=== PATIENT | female | born 2000 | race Caucasian/White ===

== ENCOUNTER 2022-06-29 10:29 | Emergency (ER) | payer BC, SELFPAY ==
[2022-06-29 10:42] VITALS: BP 114/75; PULSE 104; RESP 20; TEMP 37.1; O2SAT 100
--- NOTE | 2022-06-29 10:46 | ED.URI ---
HPI - URI/Sore Throat General Chief Complaint: Upper Respiratory Infection Stated Complaint: cough, fatigued Time Seen by Provider: 06/29/22 10:46 Source: patient, RN notes reviewed and old records reviewed Mode of arrival: ambulatory Limitations: no limitations History of Present Illness HPI Narrative: 21-year-old female who presents to [facility] with complaints of sore throat and cough for 1.5 weeks. Patient reports that her symptoms started with cough and she has been excessively fatigued. Patient reports that she has had to nap daily because of fatigue, has not noted any known fevers but has has some chills and sweats. Patient reports some sore throat which she states is intermittent and rates as 4/10. Patient has not taken any OTC decongestants or cough medications has taken some Tylenol. MD elicited complaint: cough, sore throat and other (fatigue) Onset (ago): week(s) (1.5) Pain scale (0-10): 4 Able to tolerate fluids by mouth: Yes Treatments prior to arrival: acetaminophen Related Data Home Medications Medication Instructions Recorded Confirmed norethindrone 1 mg-ethinyl 1 tablet PO DAILY 06/29/22 06/29/22 estradiol 20 mcg (24)-iron 75 mg (4) tablet () Allergies Allergy/AdvReac Type Severity Reaction Status Date / Time No Known Allergies Allergy Verified 06/29/22 10:38 Review of Systems Review of Systems: CONSTITUTIONAL: Reports malaise, chills, sweats, no known fevers, reports fatigue EYES: Denies visual changes, redness, or discharge. ENT: Denies any rhinorrhea, congestion, sinus pain, otalgia positive for mild sore throat. CARDIOVASCULAR: Denies chest pain, palpitations, or edema. RESPIRATORY: Reports cough.? Denies dyspnea. GASTROINTESTINAL: Denies abdominal pain, nausea, vomiting, diarrhea SKIN: Denies rash or itching. MUSCULOSKELETAL: Denies myalgia.reports fatigue NEUROLOGIC: Denies headache. All systems reviewed & are unremarkable except as noted in HPI and below PMFSH Social History Social History (Updated 07/03/22 @ 13:52 by Nannette Harry NP) Tobacco type: e-cigarettes/vaping Alcohol intake: never Substance use: never Living arrangements: with roommate(s) Occupation/Education: student Gender identity (if verbalized by the patient): Female Comments At time of signature, agree with nursing past medical, surgical, social and family history. There is no relevant family history pertinent to the presenting complaint Exam Narrative: GENERAL: Well-appearing, well-nourished, and in no acute distress. HEAD: Normocephalic EYES: PERRLA, conjunctivae clear ENT: Nares clear, turbinates edematous and erythematous, clear discharge. Mucous membranes moist. TM pearly murguia with dull light reflex bilaterally; no tragal tenderness. Oropharynx erythematous without lesions. Tonsils not enlarged and without exudate, no drooling, no hoarseness, no trismus, uvula midline.enlarged palpable lymph noted left neck region. NECK: Supple. left side lymphadenopathy CHEST: Clear to auscultation, breath sounds equal. No wheezing, rhonchi, rales, or stridor. No respiratory distress, speaks in full sentences.occasional dry cough noted SAO2 100% on room air HEART: Regular rate and rhythm. No murmur heard. SKIN: Warm, dry, no rash. NEURO: Alert and oriented x3. PSYCH: Normal mood and affect Course Course Emergency Course: Patient is aware of diagnosis, understands and agrees to treatment plan.? Anticipatory guidance given.? Patient agrees to follow-up as directed and is aware of reasons to seek care at the emergency department. Portions of this record may have been created with voice recognition software Level of Care: Express Care Visit Vital Signs Vital signs: Vital Signs Temperature 37.1 C 06/29/22 10:42 Pulse Rate 104 H 06/29/22 10:42 Respiratory Rate 20 06/29/22 10:42 Blood Pressure 114/75 06/29/22 10:42 Pulse Oximetry 100 06/29/22 10:
== END 2022-06-29 11:16 | disposition home or self-care (01) ==
PROVIDERS: Emergency Provider Registered Nurse
DX: J06.9 Acute upper respiratory infection, unspecified (principal)
CPT/HCPCS: 36416; 86308; 99213; G0463

== ENCOUNTER 2023-01-22 08:49 | Emergency (ER) | payer BC, SELFPAY ==
--- NOTE | 2023-01-22 09:00 | ED.URI ---
HPI - URI/Sore Throat General Chief Complaint: Upper Respiratory Infection Stated Complaint: sore throat Time Seen by Provider: 01/22/23 09:10 Source: patient, RN notes reviewed and old records reviewed Mode of arrival: ambulatory Limitations: no limitations History of Present Illness HPI Narrative: 22-year-old female presents to the [facility] complaints of sore throat , sinus congestion, postnasal drip for 1 week. Patient states it feels like when she had COVID. Patient denies fevers. No abdominal pain. Also reports a cough which makes her chest hurt but no constant chest pain. Denies shortness of breath. Had taken an allergy medication, twice Related Data Allergies Allergy/AdvReac Type Severity Reaction Status Date / Time No Known Allergies Allergy Verified 01/22/23 08:57 Review of Systems Review of Systems: All systems reviewed & are unremarkable except as noted in HPI and below Constitutional: Constitutional: Reports as per HPI and Reports fatigue Eyes: Eyes: Reports no additional eye complaints ENT: Reports system reviewed and no additional complaints, except as documented and Reports sore throat Cardiovascular: Cardiovascular: Reports no additional cardiovascular complaints, Denies chest pain and Denies dyspnea Respiratory: Respiratory: Reports no additional respiratory complaints, Denies chest congestion, Denies cough and Denies dyspnea Gastrointestinal: Gastrointestinal: Reports no additional gastrointestinal complaints, Denies abdominal pain, Denies nausea and Denies vomiting Musculoskeletal: Musculoskeletal: Reports no additional musculoskeletal complaints Integumentary/Breasts: Skin/Breast: Reports system reviewed and no additional complaints, except as docu Neurologic: Reports system reviewed and no additional complaints, except as documented Psychiatric: Psychiatric: Reports no additional psychiatric complaints Allergic/Immunologic: Allergic/Immunologic: Reports no additional allergic/immunologic complaints [facility] Social History Social History Tobacco type: e-cigarettes/vaping Alcohol intake: never Substance use: never Living arrangements: with roommate(s) Occupation/Education: student Gender identity (if verbalized by the patient): Female Comments At the time of my signature, I reviewed and agree with the nursing past medical, surgical, social, and family history. There is no relevant family history pertinent to the patient complaint. Exam Const: General: cooperative, healthy appearing, no acute distress, well developed, alert, uncomfortable and well nourished Nutritional Appearance: well nourished Orientation/consciousness: patient oriented x3 Limitations: no limitations HENMT: Head: normal to inspection Ears: hearing grossly normal bilaterally, external ears normal, TM's normal bilaterally and EAC's normal Face/Nose/Sinus: Normal external nose present, Normal nares present, Normal nasal mucous membranes and turbinates present, No nasal discharge present and normal facial exam Face and sinus: normal facial exam Mouth: Yes Normal oral and palatal mucosa present, Yes lip normal and Yes moist mucous membranes Throat: posterior oropharynx normal, tonsils normal, uvula midline and no uvular edema Eyes: General: appearance normal, both eyes and all related structures Alignment and Position: alignment normal Periorbital: periorbital findings normal Pupils: Equal, round and reactive pupils present EOM: EOMs intact bilaterally Neck: Neck: normal visual inspection, full ROM, no meningeal signs and lymphadenopathy ( bilateral submandibular) Chest: Chest palpation & inspection: normal inspection of the chest Resp: Effort & Inspection: normal respiratory effort and able to speak in complete sentences Auscultation: clear to auscultation bilaterally, no crackles, no rales, no rhonchi and no wheezes Cardio: Rate: regular rate Rhyth
[2023-01-22 09:02] VITALS: BP 101/67; PULSE 86; RESP 16; TEMP 36.8; O2SAT 98
== END 2023-01-22 09:36 | disposition home or self-care (01) ==
PROVIDERS: Emergency Provider Nurse Practitioner; PCP Pediatrics
DX: B27.90 Infectious mononucleosis, unspecified without complication (principal); Z20.822 Contact with and (suspected) exposure to COVID-19; F17.290 Nicotine dependence, other tobacco product, uncomplicated
CPT/HCPCS: 36416; 86308; 87081; 87426; 87880; 99213; C9803; G0463

== ENCOUNTER 2023-03-05 09:54 | Emergency (ER) | payer BC, SELFPAY ==
--- NOTE | 2023-03-05 09:56 | ED.FEMALEGU ---
HPI - Female Genitourinary General Chief complaint: Urogenital-Female Stated complaint: Pain & frequent urination; pain in abdomen Time Seen by Provider: 03/05/23 09:55 Source: patient Mode of arrival: ambulatory Limitations: no limitations History of Present Illness HPI Narrative: Bharati is a 22-year-old female patient presenting to the clinic today with complaints of dysuria and frequent urination with lower abdominal pain X5 day. She reports she has been having burning with urination, frequent urination, and lower abdominal cramping was some mild back pain x5 days. She denies any fever or chills. Last menstrual period was 3 weeks ago. Denies any chance for . No vaginal discharge or odor. Related Data Allergies Allergy/AdvReac Type Severity Reaction Status Date / Time No Known Allergies Allergy Verified 03/05/23 10:03 Review of Systems Review of Systems: Pertinent positives per HPI. Patient denies any fever, chills, rash, headache, visual changes, dizziness, cough, runny nose, sore throat, shortness of breath, chest pain, palpitations, nausea, vomiting, diarrhea, constipation, PMFSH Social History Social History Tobacco type: e-cigarettes/vaping Alcohol intake: never Substance use: never Living arrangements: with roommate(s) Occupation/Education: student Gender identity (if verbalized by the patient): Female Comments At the time of my signature, I reviewed and agree with the nursing past medical, surgical, social, and family history. There is no relevant family history pertinent to the patient complaint. Exam Narrative: General: Well-developed, well nourished, in no apparent distress. Head: Normocephalic, atraumatic. Cardio: Regular rate and rhythm, s1 and s2 normal, no murmur appreciated. Resp: Clear to auscultation bilaterally, no rhonchi, rales, wheezing or rubs. Abdomen: Soft, pliable, bowel sounds present in all quadrants, mild tender to palpation over the bladder, no organomegly, no CVAT tenderness. Course Course Emergency Course: Portions of this record may have been created with voice recognition software. Level of Care: Express Care Visit Vital Signs Vital signs: Vital signs reviewed MDM - Female Genitourinary MDM Narrative Medical decision making narrative: At the time of visit patient is resting comfortably on the exam table. UA dip and UA preg test was performed Differential Diagnosis Differential diagnosis: Likely urinary tract infection, cystitis and other (Pyelonephritis) Discharge Plan Discharge Clinical Impression: Urinary tract infection Qualifiers: Urinary tract infection type: acute cystitis Hematuria presence: with hematuria Qualified Code(s): N30.01 - Acute cystitis with hematuria Patient Disposition: Home, Self-Care Condition: Stable Instructions: Antibiotic Form, Urinary Tract Infection in Women (ED) Additional Instructions: UA shows Leukocytes, blood, and protein. Will send for culture. U/A preg test negative. Take Bactrim and pyridium as prescribed. Increase fluids and stay well hydrated Wipe front to back. May use wet wipes. Avoid tub baths If sexually active- pee before and after intercourse. Wear cotton panties Avoid tight clothing up against the genitals Follow up with your PCP in 1 week if symptoms persist. Prescriptions: New sulfamethoxazole-trimethoprim [Bactrim DS] 800-160 mg tablet 1 tablet PO Q12H 7 Days Qty: 14 0RF phenazopyridine [Pyridium] 200 mg tablet 200 mg PO TID PRN (Reason: pain) Qty: 6 0RF Follow-up/Referrals: Francheska,Bernard Riley MD [Primary Care Provider] - Stand Alone Forms: Work/School Release IP Time of Disposition: 10:16 Quality NIHSS Nursing Documentation ED NIHSS nursing documentation: reviewed/agree
[2023-03-05 10:08] VITALS: BP 112/73; PULSE 100; RESP 16; TEMP 36.6; O2SAT 100
== END 2023-03-05 10:25 | disposition home or self-care (01) ==
LOC: EXPGOSH 10:00
PROVIDERS: Emergency Provider Nurse Practitioner Family; PCP Pediatrics
DX: N30.01 Acute cystitis with hematuria (principal); F17.290 Nicotine dependence, other tobacco product, uncomplicated
CPT/HCPCS: 81003; 81025; 87077; 87086; 87088; 99213; G0463

== ENCOUNTER 2023-04-26 10:37 | Emergency (ER) | payer BC, SELFPAY ==
--- NOTE | ~2023-04-26 | XR_ITS ---
EXAMINATION: XR abdomen obstructive series DATE: 04/26/2023 11:34 INDICATION: Abdominal pain. Diarrhea. TECHNIQUE: Upright and supine views of the abdomen on 3 radiographs were obtained. COMPARISON: None. FINDINGS: There are no dilated loops of bowel. There is a small volume of stool in the colon. No free intraperitoneal gas. IMPRESSION: 1. Normal bowel gas pattern. Reviewed, dictated and finalized at location A.
[2023-04-26 10:51] VITALS: BP 101/67; PULSE 81; RESP 16; TEMP 36.8; O2SAT 100
--- NOTE | 2023-04-26 11:09 | ED.NAVMDI ---
HPI - Nausea/Vomiting/Diarrhea General Chief complaint: Abdominal Pain Stated complaint: CONSTIPATION Time Seen by Provider: 04/26/23 11:00 Source: patient Mode of arrival: ambulatory Limitations: no limitations History of Present Illness HPI Narrative: Bharati is a 22-year-old female patient presenting to the clinic today with complaints of diarrhea x2 weeks. She reports that prior to having diarrhea she went on a flu trip but she denies getting any water in her mouth. She denies any fever, chills, or body aches. Reports that the diarrhea initially was brown and now is a green color. States she is only having abdominal cramping prior to having diarrhea otherwise she has no abdominal pain. She reports that she is having some urinary frequency however no burning or urgency with urination. States she has had 3 diarrhea stools this morning already. Related Data Home Medications Medication Instructions Recorded Confirmed No Home Medications 04/26/23 04/26/23 Allergies Allergy/AdvReac Type Severity Reaction Status Date / Time No Known Allergies Allergy Verified 03/05/23 10:03 Review of Systems Review of Systems: Pertinent positives per HPI. Patient denies any fever, chills, rash, headache, visual changes, dizziness, cough, runny nose, sore throat, shortness of breath, chest pain, palpitations, nausea, vomiting, diarrhea, constipation, abdominal pain, or any urinary issues. PMFSH Social History Social History Tobacco type: e-cigarettes/vaping Alcohol intake: never Substance use: never Living arrangements: with roommate(s) Occupation/Education: student Gender identity (if verbalized by the patient): Female Comments At the time of my signature, I reviewed and agree with the nursing past medical, surgical, social, and family history. There is no relevant family history pertinent to the patient complaint. Exam Narrative: General: Well-developed, well nourished, in no apparent distress. Head: Normocephalic, atraumatic. Cardio: Regular rate and rhythm, s1 and s2 normal, no murmur appreciated. Resp: Clear to auscultation bilaterally, no rhonchi, rales, wheezing or rubs. Abdomen: Soft, pliable, bowel sounds present in all quadrants, non-tender to palpation, no organomegly, no CVAT tenderness. Course Course Emergency Course: Portions of this record may have been created with voice recognition software. Level of Care: Express Care Visit Vital Signs Vital signs: Vital Signs Temperature 36.8 C 04/26/23 10:51 Pulse Rate 81 04/26/23 10:51 Respiratory Rate 16 04/26/23 10:51 Blood Pressure 101/67 04/26/23 10:51 Pulse Oximetry 100 04/26/23 10:51 Temperature 36.8 C 04/26/23 10:51 Pulse Rate 81 04/26/23 10:51 Respiratory Rate 16 04/26/23 10:51 Blood Pressure 101/67 04/26/23 10:51 Pulse Oximetry 100 04/26/23 10:51 Vital signs reviewed MDM - Nausea/Vomiting/Diarrhea MDM Narrative Medical decision making narrative: At the time of visit patient is resting on the exam table.. Urinalysis shows a trace of blood without sign of infection or protein. Urine preg test was negative. Obstructive series abdomen was completed and was negative for any sign of obstruction, mass, or constipation. Patient has normal bowel gas pattern and no sign of ileus or enteritis. I suspect patient has acute diarrhea of unknown etiology at this time. Will recommend taking Imodium and doing a brat diet and following up with the PCP in 1 week if symptoms persist for stool testing. She voiced understanding of the discharge instructions and agrees to treatment plan. Supportive measures were discussed and she voiced understanding. Differential Diagnosis Differential diagnosis: Likely traveler's diarrhea, food poisoning, gastroenteritis and other (Acute diarrhea-infectious cause, functional diarrhea, obstruction, mass, or constipation
--- NOTE | 2023-04-26 11:28 | PC.NURSE ---
1128 urine collected and resulted; patient ambulatory to xray with xray personnel.
--- NOTE | 2023-04-26 11:32 | PC.NURSE ---
1131 Returned from xray; in room awaiting results.
== END 2023-04-26 11:51 | disposition home or self-care (01) ==
PROVIDERS: Emergency Provider Nurse Practitioner Family
DX: R19.7 Diarrhea, unspecified (principal); F17.290 Nicotine dependence, other tobacco product, uncomplicated
CPT/HCPCS: 74019; 81003; 81025; 99213; G0463

== ENCOUNTER 2023-05-16 17:49 | Emergency (ER) | payer BC, SELFPAY ==
--- NOTE | 2023-05-16 17:52 | ED.FEMALEGU ---
HPI - Female Genitourinary General Chief complaint: Urogenital-Female Stated complaint: sti test Time Seen by Provider: 05/16/23 17:52 Source: patient and RN notes reviewed History of Present Illness HPI Narrative: Patient is a 22-year-old female presents to urgent care with complaints of thick yellow vaginal discharge for the last 2-3 days. Patient states that she has had yeast infections in the past with the discharge seems to be different. Patient states that she is having some discomfort but denies any dysuria, hematuria or urinary symptoms. States that she is sexually active with 1 partner and has not told them of her symptoms nor have they complained of any personal symptoms themselves. No other acute complaints. No acute distress noted. Patient aware of the plan of care. Some parts of this dictation were generated by voice recognition software and may contain typographical and/or grammatical inaccuracies. Related Data Allergies Allergy/AdvReac Type Severity Reaction Status Date / Time No Known Allergies Allergy Verified 05/16/23 18:07 Review of Systems Review of Systems: CONSTITUTIONAL: Denies fever, chills, or sweats. EYES: Denies visual changes, redness, or discharge. ENT: Denies rhinorrhea, congestion, sore throat, or otalgia. CARDIOVASCULAR: Denies chest pain, palpitations, or edema. RESPIRATORY: Denies cough or dyspnea. GASTROINTESTINAL: Denies abdominal pain, nausea, vomiting, or diarrhea. GENITOURINARY: Denies dysuria or hematuria. Reports of thick yellow vaginal discharge SKIN: Denies rash or itching. MUSCULOSKELETAL: Denies back pain, joint pain, or myalgia. NEUROLOGIC: Denies headache, numbness, or weakness. All other systems reviewed are negative, except as documented in HPI. PMFSH Social History Social History Tobacco type: e-cigarettes/vaping Alcohol intake: never Substance use: never Living arrangements: with roommate(s) Occupation/Education: student Gender identity (if verbalized by the patient): Female Comments At the time of my signature, I reviewed and agree with the nursing past medical, surgical, social, and family history. There is no relevant family history pertinent to the patient complaint. Exam Narrative: GENERAL: This is a well-nourished, well-developed patient, in no apparent distress. HEAD: normocephalic, atraumatic. EYES: PERRL. Sclera clear/white. Vision is grossly intact. EARS: External ears normal NOSE: External nose normal with no obvious nasal discharge, nares without redness, no rhinorrhea. THROAT: Mucous membranes moist NECK: Neck supple SKIN: warm, intact with no suspicious lesions or rash, good texture and turgor. NEURO: awake, alert, and oriented to person, place and time. There were no obvious focal neurologic abnormalities. EXTREMITIES: No clubbing, cyanosis, or edema. Course Course Level of Care: Express Care Visit Vital Signs Vital signs: Vital Signs Temperature 98.7 F 05/16/23 17:56 Pulse Rate 89 05/16/23 17:56 Respiratory Rate 16 05/16/23 17:56 Blood Pressure 115/81 05/16/23 17:56 Pulse Oximetry 100 05/16/23 17:56 Temperature 98.7 F 05/16/23 17:56 Pulse Rate 89 05/16/23 17:56 Respiratory Rate 16 05/16/23 17:56 Blood Pressure 115/81 05/16/23 17:56 Pulse Oximetry 100 05/16/23 17:56 Reviewed MDM - Female Genitourinary MDM Narrative Medical decision making narrative: Reviewed lab results with the patient. She is aware that urinalysis does have a scant bacteria however we will wait for culture due to current vaginal symptoms, for treatment purposes. Urinary culture for bacterial infection typically results within 2-3 days. Explained the process of STI results with the patient. She is aware it can take up to 7-10 days for results and she will be called by a provider to review her testing. Considering the patient is wishing to forego treatme
[2023-05-16 17:56] VITALS: BP 115/81; PULSE 89; RESP 16; TEMP 37.1; O2SAT 100
--- NOTE | 2023-05-16 18:12 | PC.NURSE ---
PT DECLINES TX FOR STI AT THIS TIME, REPORTS SHE WOULD LIKE TO WAIT ON RESULTS. PT REPORTS SHE WOULD LIKE TO BE TREATED FOR A YEAST INFECTION AT THIS TIME ONLY.
[2023-05-17 19:53] LABS: Trichomonas Vag PCR NOT DETECTED (NOT DETECTE)
[2023-05-17 20:16] LABS: Chlamydia trachomatis NOT DETECTED (NOT DETECTE); Neisseria gonorrhoeae PCR NOT DETECTED (NOT DETECTE)
== END 2023-05-16 18:15 | disposition home or self-care (01) ==
PROVIDERS: Emergency Provider Nurse Practitioner Family; PCP Pediatrics
DX: N89.8 Other specified noninflammatory disorders of vagina (principal); R52 Pain, unspecified; F17.219 Nicotine dependence, cigarettes, with unspecified nicotine-induced disorders; Z11.3 Encounter for screening for infections with a predominantly sexual mode of transmission
CPT/HCPCS: 81003; 87086; 87491; 87591; 87661; 99213; G0463

== ENCOUNTER 2023-06-18 08:15 | Emergency (ER) | payer BC, SELFPAY ==
[2023-06-18 08:21] VITALS: BP 102/80; PULSE 92; RESP 16; TEMP 36.7; O2SAT 97
--- NOTE | 2023-06-18 08:37 | ED.GENADULT ---
HPI - General Adult General Chief complaint: Nausea/Vomiting/Diarrhea Stated complaint: Nausea;Diarrhea;Chills Time Seen by Provider: 06/18/23 08:37 Source: patient, RN notes reviewed and old records reviewed Mode of arrival: ambulatory Limitations: no limitations History of Present Illness HPI narrative: 22-year-old female presents to the [facility] with complaints of nausea, diarrhea, body aches and chills that started last Sunday, 5 days ago. Has taken ibuprofen. Has vomited Denies any abdominal pain, chest pain, shortness of breath. Denies any upper respiratory symptoms Denies any chances of . Denies urinary symptoms Reports taken at home COVID test which she reports is negative Onset (ago): day(s) (5) Related Data Allergies Allergy/AdvReac Type Severity Reaction Status Date / Time No Known Allergies Allergy Verified 06/18/23 08:22 Review of Systems Review of Systems: All systems reviewed & are unremarkable except as noted in HPI and below Constitutional: Constitutional: Reports as per HPI and Reports body ache(s) Eyes: Eyes: Reports no additional eye complaints ENT: Reports system reviewed and no additional complaints, except as documented Cardiovascular: Cardiovascular: Reports no additional cardiovascular complaints, Denies chest pain and Denies dyspnea Respiratory: Respiratory: Reports no additional respiratory complaints, Denies chest congestion, Denies cough and Denies dyspnea Gastrointestinal: Gastrointestinal: Reports as per HPI, Reports no additional gastrointestinal complaints, Denies abdominal pain, Reports diarrhea, Reports nausea and Reports vomiting Musculoskeletal: Musculoskeletal: Reports no additional musculoskeletal complaints Integumentary/Breasts: Skin/Breast: Reports system reviewed and no additional complaints, except as docu Neurologic: Reports system reviewed and no additional complaints, except as documented Psychiatric: Psychiatric: Reports no additional psychiatric complaints Allergic/Immunologic: Allergic/Immunologic: Reports no additional allergic/immunologic complaints [facility] Past Medical History Medical History No significant medical problems Surgical History Surgical History (Updated 06/18/23 @ 08:51 by Jailyn Najera APRN) No history of previous surgery Social History Social History Tobacco type: e-cigarettes/vaping Alcohol intake: never Substance use: never Living arrangements: with roommate(s) Occupation/Education: student Gender identity (if verbalized by the patient): Female Comments At the time of my signature, I reviewed and agree with the nursing past medical, surgical, social, and family history. There is no relevant family history pertinent to the patient complaint. Exam Const: General: cooperative, healthy appearing, comfortable, no acute distress, well developed, alert and well nourished Nutritional Appearance: well nourished Orientation/consciousness: patient oriented x3 Limitations: no limitations HENMT: Head: normal to inspection Ears: hearing grossly normal bilaterally, external ears normal, TM's normal bilaterally, EAC's normal, mastoids normal and no periauricular adenopathy Face/Nose/Sinus: Normal external nose present, Normal nares present, Normal nasal mucous membranes and turbinates present, normal facial exam and face symmetric Face and sinus: normal facial exam and face symmetric Mouth: Yes Normal oral and palatal mucosa present, Yes lip normal and Yes moist mucous membranes Throat: posterior oropharynx normal, tonsils normal, uvula midline and no uvular edema Eyes: General: appearance normal, both eyes and all related structures Alignment and Position: alignment normal Periorbital: periorbital findings normal Pupils: Equal, round and reactive pupils present EOM: EOMs intact bilaterally Neck: Neck: normal
== END 2023-06-18 08:56 | disposition home or self-care (01) ==
PROVIDERS: Emergency Provider Nurse Practitioner; PCP Pediatrics
DX: K52.9 Noninfective gastroenteritis and colitis, unspecified (principal); R53.83 Other fatigue; F17.290 Nicotine dependence, other tobacco product, uncomplicated
CPT/HCPCS: 99213; G0463

== ENCOUNTER 2023-08-20 08:06 | Emergency (ER) | payer BC, SELFPAY ==
--- NOTE | 2023-08-20 08:10 | ED.GENADULT ---
HPI - General Adult General Chief complaint: Dizziness Stated complaint: Lightheaded;Nausea Time Seen by Provider: 08/20/23 08:18 Source: patient, RN notes reviewed and old records reviewed Mode of arrival: ambulatory Limitations: no limitations History of Present Illness HPI narrative: 22-year-old female presents to the [facility] with feeling lightheaded since Sunday, 3 days. States that she was driving felt lightheaded and nauseous. Did not vomit today. Has been intermittent Patient denies any upper respiratory symptoms. Denies sore throat, fevers, congestion. Patient denies any abdominal pain, chest pain, shortness of breath Patient denies any urinary symptoms. Denies chances of . Onset (ago): day(s) (3) Treatments prior to arrival: none Related Data Home Medications Medication Instructions Recorded Confirmed No Home Medications 08/20/23 08/20/23 Allergies Allergy/AdvReac Type Severity Reaction Status Date / Time No Known Allergies Allergy Verified 08/20/23 08:20 Review of Systems Review of Systems: All systems reviewed & are unremarkable except as noted in HPI and below Constitutional: Constitutional: Reports as per HPI Eyes: Eyes: Reports no additional eye complaints ENT: Reports system reviewed and no additional complaints, except as documented Cardiovascular: Cardiovascular: Reports no additional cardiovascular complaints, Denies chest pain and Denies dyspnea Respiratory: Respiratory: Reports no additional respiratory complaints, Denies chest congestion, Denies cough and Denies dyspnea Gastrointestinal: Gastrointestinal: Reports no additional gastrointestinal complaints, Denies abdominal pain, Denies nausea and Denies vomiting Musculoskeletal: Musculoskeletal: Reports no additional musculoskeletal complaints Integumentary/Breasts: Skin/Breast: Reports system reviewed and no additional complaints, except as docu Neurologic: Reports as per HPI, Denies abnormal gait and Denies headache(s) Psychiatric: Psychiatric: Reports no additional psychiatric complaints Allergic/Immunologic: Allergic/Immunologic: Reports no additional allergic/immunologic complaints PMFSH Past Medical History Medical History No significant medical problems Surgical History Surgical History No history of previous surgery Social History Social History Tobacco type: e-cigarettes/vaping Alcohol intake: never Substance use: never Living arrangements: with roommate(s) Occupation/Education: student Gender identity (if verbalized by the patient): Female Comments At the time of my signature, I reviewed and agree with the nursing past medical, surgical, social, and family history. There is no relevant family history pertinent to the patient complaint. Exam Const: General: cooperative, healthy appearing, comfortable, no acute distress, well developed, alert and well nourished Nutritional Appearance: well nourished Orientation/consciousness: patient oriented x3 Limitations: no limitations HENMT: Head: normal to inspection Ears: hearing grossly normal bilaterally, external ears normal, TM's normal bilaterally, EAC's normal, mastoids normal and no periauricular adenopathy Face/Nose/Sinus: Normal external nose present, Normal nares present, Normal nasal mucous membranes and turbinates present, normal facial exam and face symmetric Face and sinus: normal facial exam and face symmetric Mouth: Yes Normal oral and palatal mucosa present, Yes lip normal and Yes moist mucous membranes Throat: posterior oropharynx normal and uvula midline Eyes: General: appearance normal, both eyes and all related structures Alignment and Position: alignment normal Periorbital: periorbital findings normal Pupils: Equal, round and reactive pupils present EOM: EOMs in
[2023-08-20 08:16] VITALS: BP 109/83; PULSE 108; RESP 16; TEMP 36.8; O2SAT 100
--- NOTE | 2023-08-20 08:20 | ECG_ITS ---
Measurements Intervals [place] Rate: 84 P: 77 HI: 149 QRS: 90 QRSD: 78 T: 69 QT: 366 QTc: 434 Interpretive Statements SINUS RHYTHM WITH SINUS ARRHYTHMIA BASELINE ARTIFACT- II, III, AVR, AVL, AVF NORMAL ECG NO PREVIOUS ECG AVAILABLE FOR COMPARISON Electronically Signed On 08-20-2023 10:12:50 LEAD RECREATION ASSISTANT by Caleb Bailey D.O.
[2023-08-20 08:29] LABS: Glucose Point of Care 70 mg/dl (65-105)
[2023-08-20 08:35] VITALS: BP 112/74; PULSE 93
[2023-08-20 08:38] VITALS: BP 123/72; PULSE 115
[2023-08-20 08:41] VITALS: BP 126/85; PULSE 118
== END 2023-08-20 09:14 | disposition home or self-care (01) ==
PROVIDERS: Emergency Provider Nurse Practitioner
DX: R42 Dizziness and giddiness (principal); E16.2 Hypoglycemia, unspecified; F17.290 Nicotine dependence, other tobacco product, uncomplicated
CPT/HCPCS: 82948; 93005; 99213; G0463

== ENCOUNTER 2023-10-05 08:56 | Emergency (ER) | payer BC, SELFPAY ==
[2023-10-05 09:25] VITALS: BP 107/78; PULSE 90; RESP 20; TEMP 36.8; O2SAT 100
--- NOTE | 2023-10-05 09:35 | ED.URI ---
HPI - URI/Sore Throat General Chief Complaint: Upper Respiratory Infection Stated Complaint: Strep Symptoms Time Seen by Provider: 10/05/23 09:35 Source: patient, RN notes reviewed and old records reviewed Mode of arrival: ambulatory Limitations: no limitations History of Present Illness HPI Narrative: 22-year-old female presents to the [facility] with complaints of a sore throat and a cough for 2 days. States that she works at a daycare. Has taken Advil Denies any other symptoms Related Data Home Medications Medication Instructions Recorded Confirmed No Home Medications 08/20/23 08/20/23 Allergies Allergy/AdvReac Type Severity Reaction Status Date / Time No Known Allergies Allergy Verified 08/20/23 08:20 Review of Systems Review of Systems: All systems reviewed & are unremarkable except as noted in HPI and below Constitutional: Constitutional: Reports no additional constitutional complaints Eyes: Eyes: Reports no additional eye complaints ENT: Reports as per HPI and Reports sore throat Cardiovascular: Cardiovascular: Reports no additional cardiovascular complaints, Denies chest pain and Denies dyspnea Respiratory: Respiratory: Reports as per HPI, Denies chest congestion, Reports cough and Denies dyspnea Gastrointestinal: Gastrointestinal: Reports no additional gastrointestinal complaints, Denies abdominal pain, Denies nausea and Denies vomiting Musculoskeletal: Musculoskeletal: Reports no additional musculoskeletal complaints Integumentary/Breasts: Skin/Breast: Reports system reviewed and no additional complaints, except as docu Neurologic: Reports system reviewed and no additional complaints, except as documented Psychiatric: Psychiatric: Reports no additional psychiatric complaints Allergic/Immunologic: Allergic/Immunologic: Reports no additional allergic/immunologic complaints [facility] Past Medical History Medical History No significant medical problems Surgical History Surgical History No history of previous surgery Social History Social History Tobacco type: e-cigarettes/vaping Alcohol intake: never Substance use: never Living arrangements: with roommate(s) Occupation/Education: student Gender identity (if verbalized by the patient): Female Comments At the time of my signature, I reviewed and agree with the nursing past medical, surgical, social, and family history. There is no relevant family history pertinent to the patient complaint. Exam Const: General: cooperative, healthy appearing, comfortable, no acute distress, well developed, alert and well nourished Nutritional Appearance: well nourished Orientation/consciousness: patient oriented x3 Limitations: no limitations HENMT: Head: normal to inspection Ears: hearing grossly normal bilaterally, external ears normal, TM's normal bilaterally, EAC's normal, mastoids normal and no periauricular adenopathy Face/Nose/Sinus: Normal external nose present, Normal nares present, Normal nasal mucous membranes and turbinates present, normal facial exam and face symmetric Face and sinus: normal facial exam and face symmetric Mouth: Yes Normal oral and palatal mucosa present, Yes lip normal and Yes moist mucous membranes Throat: posterior oropharynx normal, tonsils normal, uvula midline and no uvular edema Eyes: General: appearance normal, both eyes and all related structures Alignment and Position: alignment normal Periorbital: periorbital findings normal Pupils: Equal, round and reactive pupils present EOM: EOMs intact bilaterally Neck: Neck: normal visual inspection, full ROM, no lymphadenopathy and no meningeal signs Chest: Chest palpation & inspection: normal inspection of the chest Resp: Effort & Inspection: normal respiratory effort and able to speak in complete
== END 2023-10-05 10:03 | disposition home or self-care (01) ==
PROVIDERS: Emergency Provider Nurse Practitioner
DX: J06.9 Acute upper respiratory infection, unspecified (principal); Z20.822 Contact with and (suspected) exposure to COVID-19; F17.290 Nicotine dependence, other tobacco product, uncomplicated
CPT/HCPCS: 87081; 87426; 87804; 87880; 99213; G0463

== ENCOUNTER 2024-03-06 10:03 | Emergency (ER) | payer BC, SELFPAY ==
[2024-03-06 10:13] VITALS: BP 119/78; PULSE 119; RESP 16; TEMP 36.6; O2SAT 100
--- NOTE | 2024-03-06 10:20 | ED.URI ---
HPI - URI/Sore Throat General Chief Complaint: Upper Respiratory Infection Stated Complaint: Covid Symptoms Time Seen by Provider: 03/06/24 10:17 Source: patient and RN notes reviewed Mode of arrival: ambulatory Limitations: no limitations History of Present Illness HPI Narrative: Patient presents today with a 2 day history of sore throat, cough, fatigue. Symptoms began worsening last night. She also reports some mild shortness of breath with exertion. Denies fever or known sick contacts. She had a negative home COVID test this morning. Patient vapes. No history of asthma. Currently rates her pain 01/20. Related Data Home Medications Medication Instructions Recorded Confirmed drospirenone 3 mg-ethinyl tablet 03/06/24 estradiol 0.02 mg tablet Allergies Allergy/AdvReac Type Severity Reaction Status Date / Time No Known Allergies Allergy Verified 03/06/24 10:08 Review of Systems Review of Systems: CONSTITUTIONAL: Denies body aches, fever, chills, or sweats.+ fatigue EYES: Denies visual changes, redness, or discharge. ENT: Denies rhinorrhea, congestion, or otalgia.+ sore throat CARDIOVASCULAR: Denies chest pain, palpitations, or edema. RESPIRATORY: Denies dyspnea.+ cough GASTROINTESTINAL: Denies abdominal pain, nausea, vomiting, or diarrhea. GENITOURINARY: Denies dysuria or hematuria. SKIN: Denies rash, itching, or wounds. MUSCULOSKELETAL: Denies back pain, joint pain, or myalgia. NEUROLOGIC: Denies headache, numbness, tingling, or weakness. PSYCH: Denies depression or anxiety. [facility] Past Medical History Medical History No significant medical problems Surgical History Surgical History No history of previous surgery Social History Social History Tobacco type: e-cigarettes/vaping Alcohol intake: never Substance use: never Living arrangements: with roommate(s) Occupation/Education: student Gender identity (if verbalized by the patient): Female Comments At time of signature, I have reviewed and agree with nursing past medical, surgical, social and family history unless otherwise noted. Please see nursing chart for further information. There is no relevant family history pertinent to the presenting complaint Exam Narrative: GENERAL: Well-appearing, well-nourished, and in no acute distress. HEAD: Normocephalic, atraumatic. EYES: EOMI. No redness or drainage. Conjunctivae normal. ENT: Mucous membranes pink and moist. Nares clear. No rhinorrhea. TMs normal bilaterally. Throat mildly erythematous without edema or exudate. Uvula midline. NECK: Normal AROM. Supple. No lymphadenopathy. CHEST: No respiratory distress. Clear to auscultation. HEART: Regular rate and rhythm. No murmur appreciated. EXTREMITIES: Normal range of motion. No edema. SKIN: Warm, dry, no rash. Capillary refill normal. Normal skin turgor. NEURO: No focal deficits. Alert and oriented x3. Gait steady. PSYCH: Normal affect. No signs of depression or anxiety. Course Course Level of Care: Express Care Visit Vital Signs Vital signs: Vital Signs Temperature 97.9 F 03/06/24 10:13 Pulse Rate 119 H 03/06/24 10:13 Respiratory Rate 16 03/06/24 10:13 Blood Pressure 119/78 03/06/24 10:13 Pulse Oximetry 100 03/06/24 10:13 Temperature 97.9 F 03/06/24 10:13 Pulse Rate 119 H 03/06/24 10:13 Respiratory Rate 16 03/06/24 10:13 Blood Pressure 119/78 03/06/24 10:13 Pulse Oximetry 100 03/06/24 10:13 Reviewed MDM - URI/Sore Throat MDM Narrative Medical decision making narrative: Rapid strep negative. Culture pending. Symptoms likely viral in etiology. Discussed [id number] medication use and duration of illness. No prescription medications indicated at this time. Anticipatory guidance g
[2024-03-06 10:22] LABS: EDSTREPNEGPOS1 Presumptive Negative
== END 2024-03-06 10:33 | disposition home or self-care (01) ==
PROVIDERS: Emergency Provider Nurse Practitioner
DX: J06.9 Acute upper respiratory infection, unspecified (principal); F17.290 Nicotine dependence, other tobacco product, uncomplicated
CPT/HCPCS: 87081; 87880; 99213; G0463

== ENCOUNTER 2024-05-28 09:48 | Emergency (ER) | payer BC, SELFPAY ==
--- NOTE | ~2024-05-28 | XR_ITS ---
EXAMINATION: XR chest 2V DATE: 05/28/2024 10:44 INDICATION: Cholelithiasis and cough for 6 days TECHNIQUE: PA and lateral views of the chest were obtained. COMPARISON: None FINDINGS: The lungs are clear with no focal airspace opacities, pulmonary edema, pleural effusion or pneumothor ax. The cardiomediastinal silhouette is normal. Visualized bones and soft tissues are unremarkable. IMPRESSION: 1. No acute cardiopulmonary disease. Reviewed, dictated and finalized at location A.
[2024-05-28 09:59] VITALS: BP 98/76; PULSE 91; RESP 16; TEMP 36.5; O2SAT 98
--- NOTE | 2024-05-28 10:25 | ED.URI ---
HPI - URI/Sore Throat General Chief Complaint: Upper Respiratory Infection Stated Complaint: sorethroat,cough Time Seen by Provider: 05/28/24 10:15 Source: patient, RN notes reviewed and old records reviewed Mode of arrival: ambulatory Limitations: no limitations History of Present Illness HPI Narrative: 23 year old female who presents to [facility] with complaints of cough and sore throat for the past 6 days and has had intermittent episodes of diarrhea. Patient reports that she feels some body exhaustion and has noted some feelings of dyspnea with activity. Patient reports that her room mate has also been sick with similar symptoms. Patient reports that she has been taking Ibuprofen an also some OTC flu and cold medication. Patient reports that she has had some cold sweats at night. Patient reports that she had a bad headache yesterday color pale denies any nausea or vomiting. MD elicited complaint: cough, sore throat, rhinorrhea, nasal congestion and other (headache, intermittent diarrhea) Onset (ago): day(s) (6) Consistency: constant Pain scale (0-10): 6 Able to tolerate fluids by mouth: Yes Treatments prior to arrival: ibuprofen and other (Flu and cold medication) Related Data Home Medications Medication Instructions Recorded Confirmed drospirenone 3 mg-ethinyl 1 tablet PO DAILY 03/06/24 05/28/24 estradiol 0.02 mg tablet escitalopram oxalate 10 mg tablet 10 mg PO DAILY 05/28/24 05/28/24 Allergies Allergy/AdvReac Type Severity Reaction Status Date / Time No Known Allergies Allergy Verified 05/28/24 10:21 Review of Systems Review of Systems: CONSTITUTIONAL: Reports malaise, chills, sweats, unknown if fever, states body exhaustion EYES: Denies visual changes, redness, or discharge. ENT: Reports rhinorrhea, congestion, no sinus pain, no otalgia and sore throat. CARDIOVASCULAR: Denies chest pain, palpitations, or edema. RESPIRATORY: Reports cough.? Reports some dyspnea with exertion. GASTROINTESTINAL: Denies abdominal pain, nausea, vomiting,positive for intermittent episodes of diarrhea SKIN: Denies rash or itching. MUSCULOSKELETAL: Denies myalgia. NEUROLOGIC: Positive for headache All systems reviewed & are unremarkable except as noted in HPI and below PMFSH Past Medical History Medical History (Updated 05/28/24 @ 11:52 by Nannette Harry NP) Anxiety IBS (irritable bowel syndrome) Surgical History Surgical History No history of previous surgery Social History Social History Tobacco type: e-cigarettes/vaping Alcohol intake: never Substance use: never Living arrangements: with roommate(s) Occupation/Education: student Gender identity (if verbalized by the patient): Female Comments At time of signature, agree with nursing past medical, surgical, social and family history. There is no relevant family history pertinent to the presenting complaint Exam Narrative: GENERAL: ill-appearing, well-nourished, and in no acute distress. HEAD: Normocephalic EYES: PERRLA, conjunctivae clear ENT: Nares clear, turbinates edematous and erythematous, clear discharge. Mucous membranes moist. TM pearly murguia with dull light reflex bilaterally; no tragal tenderness. Oropharynx erythematous without lesions. Tonsils not enlarged and without exudate, no drooling, no hoarseness, no trismus, uvula midline.post nasal drainage NECK: Supple. No lymphadenopathy CHEST: Clear to auscultation, breath sounds equal. No wheezing, rhonchi, rales, or stridor. No respiratory distress, speaks in full sentences. cough,SAO2 98% on room air HEART: Regular rate and rhythm. No murmur heard. SKIN: Warm, dry, no rash. NEURO: Alert and oriented x3. PSYCH: Normal mood and affect Course Course Emergency Course: Patient is aware of diagnosis, understands and agrees to treatment vick
[2024-05-28 10:47] LABS: EDSTREPNEGPOS1 Negative (Negative)
[2024-05-28 11:20] LABS: EDCOVIDSCREEN Negative (Negative); EDINFLUASCREEN Negative (Negative); EDINFLUBSCREEN Negative (Negative)
== END 2024-05-28 11:38 | disposition home or self-care (01) ==
PROVIDERS: Emergency Provider Registered Nurse
DX: R05.9 Cough, unspecified (principal); R09.81 Nasal congestion; J02.9 Acute pharyngitis, unspecified; Z20.822 Contact with and (suspected) exposure to COVID-19; F17.290 Nicotine dependence, other tobacco product, uncomplicated; F41.9 Anxiety disorder, unspecified
CPT/HCPCS: 71046; 87081; 87426; 87804; 87880; 99213; G0463

== ENCOUNTER 2024-07-13 13:03 | Emergency (ER) | payer BC, SELFPAY ==
--- NOTE | ~2024-07-13 | XR_ITS ---
EXAMINATION: XR chest 2V DATE: 07/13/2024 13:29 INDICATION: Cough and shortness of breath. TECHNIQUE: Frontal and lateral views of the chest were obtained. COMPARISON: Chest 2 views 05/28/2024 FINDINGS: There is no pneumonia, pleural effusion, or pneumothorax. The heart size is normal. IMPRESSION: 1. No acute cardiopulmonary disease. Reviewed, dictated and finalized at location A. HIATRIC THERAPIST
--- NOTE | 2024-07-13 13:08 | ED.URI ---
HPI - URI/Sore Throat General Chief Complaint: Upper Respiratory Infection Stated Complaint: SORE THROAT/SOB Time Seen by Provider: 07/13/24 13:20 Source: patient Mode of arrival: ambulatory Limitations: no limitations History of Present Illness HPI Narrative: Bharati is a 23-year-old female patient presenting to the clinic today with complaints of cough, chest congestion, shortness of breath, sore throat, and nasal congestion x3 days. States she did at home COVID test and it was negative. She denies any known fever or chills. MD elicited complaint: cough, sore throat and nasal congestion Related Data Home Medications Medication Instructions Recorded Confirmed drospirenone 3 mg-ethinyl 1 tablet PO DAILY 03/06/24 07/13/24 estradiol 0.02 mg tablet escitalopram oxalate 10 mg tablet 10 mg PO DAILY 05/28/24 07/13/24 Allergies Allergy/AdvReac Type Severity Reaction Status Date / Time No Known Allergies Allergy Verified 07/13/24 13:18 Review of Systems Review of Systems: Pertinent positives per HPI. Patient denies any fever, chills, rash, headache, visual changes, dizziness, chest pain, palpitations, nausea, vomiting, diarrhea, constipation, abdominal pain, or any urinary issues. [facility] Past Medical History Medical History Anxiety IBS (irritable bowel syndrome) Surgical History Surgical History No history of previous surgery Social History Social History Tobacco type: e-cigarettes/vaping Alcohol intake: never Substance use: never Living arrangements: with roommate(s) Occupation/Education: student Gender identity (if verbalized by the patient): Female Comments At the time of my signature, I reviewed and agree with the nursing past medical, surgical, social, and family history. There is no relevant family history pertinent to the patient complaint. Exam Narrative: General: Well-developed, well nourished, in no apparent distress Head: Normocephalic, atraumatic Eyes: Pupils equally round and reactive to light bilaterally, EOM intact, sclera and conjunctive clear, no discharge, lids normal Ears: TMs intact and clear, ear canals clear, no drainage, grossly hearing normal. Nose: Nares patent, clear nasal discharge, no inflammation, no sinus tenderness. Mouth: Oral pharynx red without lesions or masses, good dentition, MMM. Neck: Supple, trachea midline, no enlargement of anterior or posterior cervical nodes, no thyroid masses or goiter palpable. Cardio: Regular rate and rhythm, s1 and s2 normal, no murmur appreciated. Resp: Clear to auscultation bilaterally, no rhonchi, rales, wheezing or rubs Course Course Emergency Course: Portions of this record may have been created with voice recognition software. Level of Care: Express Care Visit Vital Signs Vital signs: Vital Signs Temperature 36.4 C 07/13/24 13:14 Pulse Rate 112 H 07/13/24 13:14 Respiratory Rate 16 07/13/24 13:14 Blood Pressure 120/32 L 07/13/24 13:14 Pulse Oximetry 98 07/13/24 13:14 Temperature 36.4 C 07/13/24 13:14 Pulse Rate 112 H 07/13/24 13:14 Respiratory Rate 16 07/13/24 13:14 Blood Pressure 120/32 L 07/13/24 13:14 Pulse Oximetry 98 07/13/24 13:14 Vital signs reviewed MDM - URI/Sore Throat MDM Narrative Medical decision making narrative: At the time of visit patient is resting comfortably on the exam table. Patient appears to be nontoxic. Labs: Strep test was obtained and was negative. We will send strep for culture. Diagnostics: Chest x-ray was negative for any acute cardiopulmonary process. Plan: I suspect patient has URI with cough and congestion. Prescription for albuterol inhaler, prednisone, and Tessalon Perles was sent to the pharmacy. Supportive measures were discussed with the patient and they voiced understanding discharge instructions and agrees to treatment plan. Return precautions reviewed Differential Diagnosis Differential diagnosis: Likely upper respiratory infection, otitis media, sinusitis, viral infection, bronchitis, influenza, pharyngitis and other (COVID) Lab Data Labs: Lab Results 07/13/24 Range/Units 13:15 POC Grp A Strep Screen Negative (Negative) Discharge Plan Discharge Clinical Impression: Upper respiratory infection with cough and congestion Patient Disposition: Home, Self-Care Condition: Stable Instructions: Antibiotic Form, Upper Respiratory Infection (ED) Additional Instructions: Chest x-rays negative for any acute cardiopulmonary process Strep test was negative in the clinic today. We will send for culture. Take prescription medications only as prescribed-albuterol inhaler, prednisone, and Tessalon Perles Increase fluids and stay well hydrated Tylenol/motrin for pain/fever Flonase and OTC antihistamines as directed Vicks vapor rub to open sinuses Sinus rinses for congestion Cepacol spray, cough drops, throat lozenges, warm tea with honey/lemon, gargle salt water to soothe throat BRAT diet for diarrhea Clear liquids x 24 hours then advance as tolerated for nausea/vomiting Go to the ED if you develop a worsening in your condition- high fever not controlled by Tylenol or Motrin, dehydration, weakness, lethargy, shortness of breath, or chest pain. Follow up with your PCP in 3-5 days if symptoms persist. Prescriptions: New albuterol sulfate 90 mcg/actuation HFA aerosol inhaler 2 puff inhalation Q4-6H PRN (Reason: shortness of breath or wheezing) 30 Days Qty: 8.5 0RF benzonatate 200 mg capsule 200 mg PO TID 7 Days Qty: 21 0RF prednisone 20 mg tablet 40 mg PO DAILY 5 Days Qty: 10 0RF No Action drospirenone-ethinyl estradiol 3-0.02 mg tablet 1 tablet PO DAILY escitalopram oxalate 10 mg tablet 10 mg PO DAILY prednisone 20 mg tablet 40 mg PO DAILY 5 Days Qty: 10 0RF Rx Instructions: take with food preferable in morning Follow-up/Referrals: PHYSICIAN,NURSE COORDINATOR [Primary Care Provider] - Stand Alone Forms: Work/School Release IP Time of Disposition: 13:39 Quality NIHSS Nursing Documentation ED NIHSS nursing documentation: reviewed/agree
[2024-07-13 13:14] VITALS: BP 120/32; PULSE 112; RESP 16; TEMP 36.4; O2SAT 98
[2024-07-13 13:27] LABS: EDSTREPNEGPOS1 Negative (Negative)
== END 2024-07-13 13:52 | disposition home or self-care (01) ==
PROVIDERS: Emergency Provider Nurse Practitioner Family
DX: J06.9 Acute upper respiratory infection, unspecified (principal); R05.9 Cough, unspecified; F17.290 Nicotine dependence, other tobacco product, uncomplicated
CPT/HCPCS: 71046; 87081; 87880; 99213; G0463

== ENCOUNTER 2024-08-25 10:20 | Emergency (ER) | payer BC, SELFPAY ==
[2024-08-25 10:29] VITALS: BP 103/72; PULSE 100; RESP 16; TEMP 36.8; O2SAT 99
--- NOTE | 2024-08-25 11:10 | ED.URI ---
HPI - URI/Sore Throat General Chief Complaint: Upper Respiratory Infection Stated Complaint: Flu symptoms Time Seen by Provider: 08/25/24 11:13 Source: patient and RN notes reviewed Mode of arrival: ambulatory Limitations: no limitations Related Data Home Medications ?Medication ?Instructions ?Recorded ?Confirmed ?Last Taken ?Type drospirenone 3 mg-ethinyl 1 tablet PO DAILY 03/06/24 07/13/24 Unknown History estradiol 0.02 mg tablet escitalopram oxalate 10 mg tablet 10 mg PO DAILY 05/28/24 07/13/24 Unknown History Allergies Allergy/AdvReac Type Severity Reaction Status Date / Time No Known Allergies Allergy Verified 07/13/24 13:18 Review of Systems Review of Systems: CONSTITUTIONAL: Denies malaise, chills, sweats, or fever. EYES: Denies visual changes, redness, or discharge. ENT: Reports rhinorrhea, congestion, sinus pain, otalgia and sore throat. CARDIOVASCULAR: Denies chest pain, palpitations, or edema. RESPIRATORY: Reports cough. Denies dyspnea. GASTROINTESTINAL: Denies abdominal pain, nausea, vomiting, diarrhea SKIN: Denies rash or itching. MUSCULOSKELETAL: Denies myalgia. NEUROLOGIC: Denies headache. All systems reviewed & are unremarkable except as noted in HPI and below PMFSH Past Medical History Medical History Anxiety IBS (irritable bowel syndrome) Surgical History Surgical History No history of previous surgery Social History Social History Tobacco type: e-cigarettes/vaping Alcohol intake: never Substance use: never Living arrangements: with roommate(s) Occupation/Education: student Gender identity (if verbalized by the patient): Female Comments At time of signature, agree with nursing past medical, surgical, social and family history. There is no relevant family history pertinent to the presenting complaint Exam Narrative: GENERAL: Well-appearing, well-nourished, and in no acute distress. HEAD: Normocephalic EYES: PERRLA, conjunctivae clear ENT: Nares clear, turbinates edematous and erythematous, clear discharge. Mucous membranes moist. TM pearly murguia with dull light reflex bilaterally; no tragal tenderness. Oropharynx not erythematous without lesions. Tonsils not enlarged and without exudate, no drooling, no hoarseness, no trismus, uvula midline. NECK: Supple. No lymphadenopathy CHEST: Clear to auscultation, breath sounds equal. No wheezing, rhonchi, rales, or stridor. No respiratory distress, speaks in full sentences. HEART: Regular rate and rhythm. No murmur heard. SKIN: Warm, dry, no rash. NEURO: Alert and oriented x3. PSYCH: Normal mood and affect Course Course Emergency Course: Patient is aware of diagnosis, understands and agrees to treatment plan. Anticipatory guidance given. Patient agrees to follow-up as directed and is aware of reasons to seek care at the emergency department. Portions of this record may have been created with voice recognition software Level of Care: Express Care Visit Vital Signs Vital signs: Vital Signs Temperature 98.2 F 08/25/24 10:29 Pulse Rate 100 08/25/24 10:29 Respiratory Rate 16 08/25/24 10:29 Blood Pressure 103/72 08/25/24 10:29 Pulse Oximetry 99 08/25/24 10:29 Oxygen Delivery Room Air 08/25/24 10:29 Temperature 98.2 F 08/25/24 10:29 Pulse Rate 100 08/25/24 10:29 Respiratory Rate 16 08/25/24 10:29 Blood Pressure 103/72 08/25/24 10:29 Pulse Oximetry 99 08/25/24 10:29 Oxygen Delivery Room Air 08/25/24 10:29 Reviewed. MDM - URI/Sore Throat MDM Narrative Medical decision making narrative: Differential diagnosis considered: Lamb virus, strep pharyngitis, allergic rhinitis, upper respiratory tract infection, sinusitis, rhinosinusitis, nasopharyngitis. viral pharyngitis, otitis media, otitis externa, pneumonia, bronchitis, viral cough syndrome, viral syndrome, and influenza. Exam findings show no acute concerns or changes; patient is non-toxic appearing and is in no distress. Patient is appropriate for outpatient treatment and follow-up. Lab Data Attestation: I reviewed the patient's lab results. Critical Care Time Critical Care Time Critical Care Time: No Discharge Plan Discharge Patient Language: Chinese Prescriptions: No Action drospirenone-ethinyl estradiol 3-0.02 mg tablet 1 tablet PO DAILY escitalopram oxalate 10 mg tablet 10 mg PO DAILY prednisone 20 mg tablet 40 mg PO DAILY 5 Days Qty: 10 0RF Rx Instructions: take with food preferable in morning albuterol sulfate 90 mcg/actuation HFA aerosol inhaler 2 puff inhalation Q4-6H PRN (Reason: shortness of breath or wheezing) 30 Days Qty: 8.5 0RF benzonatate 200 mg capsule 200 mg PO TID 7 Days Qty: 21 0RF prednisone 20 mg tablet 40 mg PO DAILY 5 Days Qty: 10 0RF Follow-up/Referrals: UNKNOWN,DOCTOR [Primary Care Provider] -
--- NOTE | 2024-08-25 11:19 | ED_ITS ---
HPI - Nausea/Vomiting/Diarrhea General Chief complaint: Upper Respiratory Infection Stated complaint: Flu symptoms Time Seen by Provider: 08/25/24 11:13 Source: patient and RN notes reviewed Mode of arrival: ambulatory Limitations: no limitations History of Present Illness HPI Narrative: 23-year-old female presents with concern for diarrhea for 2 weeks. She reports she has some loose stools 2 to 3 times a day for 2 weeks. She reports she is drinking plenty of fluids eating foods. She reports she has taken anything for diarrhea [id number]. She denies nausea, vomiting, abdominal pain, fever, aches, chills, sweats. MD elicited complaint: diarrhea Related Data Home Medications ?Medication ?Instructions ?Recorded ?Confirmed ?Last Taken ?Type drospirenone 3 mg-ethinyl 1 tablet PO DAILY 03/06/24 07/13/24 Unknown History estradiol 0.02 mg tablet escitalopram oxalate 10 mg tablet 10 mg PO DAILY 05/28/24 07/13/24 Unknown History Allergies Allergy/AdvReac Type Severity Reaction Status Date / Time No Known Allergies Allergy Verified 07/13/24 13:18 Review of Systems Review of Systems: CONSTITUTIONAL: Denies malaise, chills, sweats, or fever. ENT: Denies rhinorrhea, congestion, sinus pain, otalgia or sore throat. CARDIOVASCULAR: Denies chest pain, palpitations, or edema. RESPIRATORY: Denies cough or dyspnea. GASTROINTESTINAL: Denies abdominal pain, nausea, vomiting, bloody, or mucous stools. Reports diarrhea GENITOURINARY: Denies dysuria or hematuria. MUSCULOSKELETAL: Denies myalgia. NEUROLOGIC: Denies headache. All systems reviewed & are unremarkable except as noted in HPI and below PMFSH Past Medical History Medical History Anxiety IBS (irritable bowel syndrome) Surgical History Surgical History No history of previous surgery Social History Social History Tobacco type: e-cigarettes/vaping Alcohol intake: never Substance use: never Living arrangements: with roommate(s) Occupation/Education: student Gender identity (if verbalized by the patient): Female Comments At time of signature, agree with nursing past medical, surgical, social and family history. There is no relevant family history pertinent to the presenting complaint Exam Narrative: GENERAL: Well-appearing, well-nourished, and in no acute distress. HEAD: Normocephalic, atraumatic. EYES: PERRLA, conjunctivae clear, and EOMI. ENT: Nares clear, turbinates pink, no rhinorrhea or epistaxis. Mucous membranes moist. Oropharynx without edema, erythema, or lesions. Tonsils not enlarged and without exudate. NECK: Supple. No lymphadenopathy CHEST: Speaks in full sentences. No respiratory distress. HEART: Regular rate and rhythm. ABDOMEN: Soft, flat, nondistended, nontender. No guarding, rebound tenderness, or rigidity. No pulsatile masses. Bowel sounds present in all four quadrants. No organomegaly. No periumbilical tenderness. No Supra public tenderness or distension. No hernia noted. No scars or surface trauma. SKIN: Warm, dry, no rash. NEURO: Alert and oriented x3. PSYCH: Normal mood and affect Course Course Emergency Course: Patient is aware of diagnosis, understands and agrees to treatment plan. Anticipatory guidance given. Patient agrees to follow-up as directed and is aware of reasons to seek care at the emergency department. Portions of this record may have been created with voice recognition software Level of Care: Express Care Visit Vital Signs Vital signs: Vital Signs Temperature 98.2 F 08/25/24 10:29 Pulse Rate 100 08/25/24 10:29 Respiratory Rate 16 08/25/24 10:29 Blood Pressure 103/72 08/25/24 10:29 Pulse Oximetry 99 08/25/24 10:29 Oxygen Delivery Room Air 08/25/24 10:29 Temperature 98.2 F 08/25/24 10:29 Pulse Rate 100 08/25/24 10:29 Respiratory Rate 16 08/25/24 10:29 Blood Pressure 103/72 08/25/24 10:29 Pulse Oximetry 99 08/25/24 10:29 Oxygen Delivery Room Air 08/25/24 10:29 Reviewed. MDM - Nausea/Vomiting/Diarrhea MDM Narrative Medical decision making narrative: No evidence of pancreatitis, AAA, cholecystitis, choledocholithiasis, cholangitis, mesenteric ischemia, small bowel obstruction, diverticulitis, colitis, appendicitis, or pelvic etiology such as ovarian torsion, TOA, or ectopic . Patient has no history of peptic ulcer, H. pylori, chronic aspirin NSAID or corticosteroid use, chronic alcohol use, no history of inflammatory bowel disease, no history of active abdominal infection or malignancy. Patient has no history of hernia or intra-abdominal surgeries, patient denies absence of flatus, constipation, melena, hematemesis. Patient denies post-prandial pain. No pain-out of proportion. Exam findings show no acute concerns or changes; patient is non-toxic appearing and is in no distress. Patient is appropriate for outpatient treatment and follow-up. Critical Care Time Critical Care Time Critical Care Time: No Discharge Plan Discharge Clinical Impression: Diarrhea Patient Disposition: Home, Self-Care Condition: Stable Instructions: Antibiotic Form, Acute Diarrhea (ED) Additional Instructions: 1) Please follow-up with your primary care doctor if symptoms do not improve. 2) If you have any worsening of symptoms or any other urgent concerns please go to the ER. 3) Please take medications as prescribed and continue taking your home medications as usual. 4) Please read and follow information included in discharge instructions. Having an established primary care provider is essential to your health. Please call [phone] for help finding a primary care provider in your area that accepts your insurance. Patient Language: Indonesian Prescriptions: New ciprofloxacin HCl 500 mg tablet 500 mg PO Q12H 3 Days Qty: 6 0RF No Action drospirenone-ethinyl estradiol 3-0.02 mg tablet 1 tablet PO DAILY escitalopram oxalate 10 mg tablet 10 mg PO DAILY prednisone 20 mg tablet 40 mg PO DAILY 5 Days Qty: 10 0RF Rx Instructions: take with food preferable in morning albuterol sulfate 90 mcg/actuation HFA aerosol inhaler 2 puff inhalation Q4-6H PRN (Reason: shortness of breath or wheezing) 30 Days Qty: 8.5 0RF benzonatate 200 mg capsule 200 mg PO TID 7 Days Qty: 21 0RF prednisone 20 mg tablet 40 mg PO DAILY 5 Days Qty: 10 0RF Follow-up/Referrals: UNKNOWN,DOCTOR [Primary Care Provider] - Stand Alone Forms: Work/School Release IP Time of Disposition: 11:25
== END 2024-08-25 11:32 | disposition home or self-care (01) ==
PROVIDERS: Emergency Provider Nurse Practitioner
DX: R19.7 Diarrhea, unspecified (principal); F17.290 Nicotine dependence, other tobacco product, uncomplicated; F41.9 Anxiety disorder, unspecified
CPT/HCPCS: 99213; G0463

== ENCOUNTER 2025-01-08 08:35 | Emergency (ER) | payer BC, SELFPAY ==
--- NOTE | 2025-01-08 08:38 | ED.URI ---
HPI - URI/Sore Throat General Chief Complaint: Upper Respiratory Infection Stated Complaint: Sore Throat Time Seen by Provider: 01/08/25 08:45 Source: patient Mode of arrival: ambulatory Limitations: no limitations History of Present Illness HPI Narrative: Bharati is a 24-year-old female patient presenting to the clinic today with complaints of sore throat, nasal congestion, cough, headache, and body aches times 3 days. She denies any known fever but has not checked it. Denies any chest pain or shortness of breath. Related Data Home Medications ?Medication ?Instructions ?Recorded ?Confirmed ?Last Taken ?Type drospirenone 3 mg-ethinyl 1 tablet PO DAILY 03/06/24 07/13/24 Unknown History estradiol 0.02 mg tablet escitalopram oxalate 10 mg tablet 10 mg PO DAILY 05/28/24 07/13/24 Unknown History Allergies Allergy/AdvReac Type Severity Reaction Status Date / Time No Known Allergies Allergy Verified 07/13/24 13:18 Review of Systems Review of Systems: Pertinent positives per HPI. Patient denies any fever, chills, rash, headache, visual changes, dizziness, shortness of breath, chest pain, palpitations, nausea, vomiting, diarrhea, constipation, abdominal pain, or any urinary issues. [facility] Past Medical History Medical History IBS (irritable bowel syndrome) Anxiety Surgical History Surgical History No history of previous surgery Social History Social History Tobacco type: e-cigarettes/vaping Alcohol intake: never Substance use: never Living arrangements: with roommate(s) Occupation/Education: student Gender identity (if verbalized by the patient): Female Comments At the time of my signature, I reviewed and agree with the nursing past medical, surgical, social, and family history. There is no relevant family history pertinent to the patient complaint. Exam Narrative: General: Well-developed, well nourished, in no apparent distress Head: Normocephalic, atraumatic Eyes: Pupils equally round and reactive to light bilaterally, EOM intact, sclera and conjunctive clear, no discharge, lids normal Ears: TMs intact and congested, ear canals clear, no drainage, grossly hearing normal. Nose: Nares patent, clear nasal discharge, no inflammation, no sinus tenderness. Mouth: Oral pharynx red without lesions or masses, good dentition, MMM. Neck: Supple, trachea midline, no enlargement of anterior or posterior cervical nodes, no thyroid masses or goiter palpable. Cardio: Regular rate and rhythm, s1 and s2 normal, no murmur appreciated. Resp: Clear to auscultation bilaterally, no rhonchi, rales, wheezing or rubs Course Course Emergency Course: Portions of this record may have been created with voice recognition software. Level of Care: Express Care Visit Vital Signs Vital signs: Vital Signs Temperature 37.1 C 01/08/25 08:46 Pulse Rate 75 01/08/25 08:46 Respiratory Rate 18 01/08/25 08:46 Blood Pressure 126/71 01/08/25 08:46 Pulse Oximetry 100 01/08/25 08:46 Oxygen Delivery Room Air 01/08/25 08:46 Temperature 37.1 C 01/08/25 08:46 Pulse Rate 75 01/08/25 08:46 Respiratory Rate 18 01/08/25 08:46 Blood Pressure 126/71 01/08/25 08:46 Pulse Oximetry 100 01/08/25 08:46 Oxygen Delivery Room Air 01/08/25 08:46 Vital signs reviewed MDM - URI/Sore Throat MDM Narrative Medical decision making narrative: At the time of visit patient is resting comfortably on the exam table. Patient appears to be nontoxic. Labs: COVID, influenza, and strep test were performed. All testing was negative. We will send strep for culture. Plan: I suspect patient has URI/pharyngitis/viral syndrome. Supportive measures were discussed with the patient and they voiced understanding discharge instructions and agrees to treatment plan. Return precautions reviewed Differential Diagnosis Differential diagnosis: Likely upper respiratory infection, otitis media, sinusitis, viral infection, bronchitis, influenza, pharyngitis and other (COVID) Lab Data Labs: Lab Results 01/08/25 01/08/25 Range/Units 08:51 09:07 POC Influenza A Ag Negative (Negative) POC Influenza B Ag Negative (Negative) POC SARS CoV-2 Ag Negative (Negative) POC Grp A Strep Screen Negative (Negative) Discharge Plan Discharge Clinical Impression: URI (upper respiratory infection) Qualifiers: URI type: unspecified URI Qualified Code(s): J06.9 - Acute upper respiratory infection, unspecified Pharyngitis Qualifiers: Pharyngitis/tonsillitis etiology: unspecified etiology Qualified Code(s): J02.9 - Acute pharyngitis, unspecified Patient Disposition: Home Condition: Stable Instructions: Antibiotic Form, Pharyngitis (ED), Cold Symptoms (ED) Additional Instructions: COVID, influenza, and strep test was negative in the clinic today. We will send strep for culture. May take Sudafed as needed for nasal congestion. May take [id number] Delsym or Mucinex for cough Increase fluids and stay well hydrated Tylenol/motrin for pain/fever Flonase and OTC antihistamines as directed Vicks vapor rub to open sinuses Sinus rinses for congestion Cepacol spray, cough drops, throat lozenges, warm tea with honey/lemon, gargle salt water to soothe throat BRAT diet for diarrhea Clear liquids x 24 hours then advance as tolerated for nausea/vomiting Go to the ED if you develop a worsening in your condition- high fever not controlled by Tylenol or Motrin, dehydration, weakness, lethargy, shortness of breath, or chest pain. Follow up with your PCP in 3-5 days if symptoms persist. Patient Language: Cook Islander Prescriptions: No Action drospirenone-ethinyl estradiol 3-0.02 mg tablet 1 tablet PO DAILY escitalopram oxalate 10 mg tablet 10 mg PO DAILY prednisone 20 mg tablet 40 mg PO DAILY 5 Days Qty: 10 0RF Rx Instructions: take with food preferable in morning albuterol sulfate 90 mcg/actuation HFA aerosol inhaler 2 puff inhalation Q4-6H PRN (Reason: shortness of breath or wheezing) 30 Days Qty: 8.5 0RF benzonatate 200 mg capsule 200 mg PO TID 7 Days Qty: 21 0RF prednisone 20 mg tablet 40 mg PO DAILY 5 Days Qty: 10 0RF ciprofloxacin HCl 500 mg tablet 500 mg PO Q12H 3 Days Qty: 6 0RF Follow-up/Referrals: PHYSICIAN,[facility]HE[facility]ISHER [Primary Care Provider] - Stand Alone Forms: Work/School Release IP Time of Disposition: 09:05 Quality NIHSS Nursing Documentation ED NIHSS nursing documentation: reviewed/agree
[2025-01-08 08:46] VITALS: BP 126/71; PULSE 75; RESP 18; TEMP 37.1; O2SAT 100
[2025-01-08 08:53] LABS: EDSTREPNEGPOS1 Negative (Negative)
[2025-01-08 09:09] LABS: EDCOVIDSCREEN Negative (Negative); EDINFLUASCREEN Negative (Negative); EDINFLUBSCREEN Negative (Negative)
== END 2025-01-08 09:09 | disposition home or self-care (01) ==
PROVIDERS: Emergency Provider Nurse Practitioner Family
DX: J06.9 Acute upper respiratory infection, unspecified (principal); J02.9 Acute pharyngitis, unspecified; Z20.822 Contact with and (suspected) exposure to COVID-19; F17.290 Nicotine dependence, other tobacco product, uncomplicated; F41.9 Anxiety disorder, unspecified
CPT/HCPCS: 87081; 87426; 87804; 87880; 99213; G0463

== ENCOUNTER 2025-01-26 10:11 | Emergency (ER) | payer BC, SELFPAY ==
[2025-01-26 10:16] VITALS: BP 97/71; PULSE 88; RESP 16; TEMP 36.5; O2SAT 100
--- NOTE | 2025-01-26 10:24 | ED.URI ---
HPI - URI/Sore Throat General Chief Complaint: Upper Respiratory Infection Stated Complaint: SORE THROAT Time Seen by Provider: 01/26/25 10:24 Source: patient, RN notes reviewed and old records reviewed Mode of arrival: ambulatory Limitations: no limitations History of Present Illness HPI Narrative: 24-year-old female presents to the [facility] with complaints of a sore throat since Sunday, 2 days. No treatment prior to arrival. Denies any other symptoms Related Data Home Medications ?Medication ?Instructions ?Recorded ?Confirmed ?Last Taken ?Type drospirenone 3 mg-ethinyl 1 tablet PO DAILY 03/06/24 07/13/24 Unknown History estradiol 0.02 mg tablet escitalopram oxalate 10 mg tablet 10 mg PO DAILY 05/28/24 07/13/24 Unknown History Allergies Allergy/AdvReac Type Severity Reaction Status Date / Time No Known Allergies Allergy Verified 01/26/25 10:20 Review of Systems Review of Systems: All systems reviewed & are unremarkable except as noted in HPI and below Constitutional: Constitutional: Reports no additional constitutional complaints ENT: Reports as per HPI and Reports sore throat Cardiovascular: Cardiovascular: Reports no additional cardiovascular complaints, Denies chest pain and Denies dyspnea Respiratory: Respiratory: Reports no additional respiratory complaints, Denies chest congestion, Denies cough and Denies dyspnea Musculoskeletal: Musculoskeletal: Reports no additional musculoskeletal complaints Integumentary/Breasts: Skin/Breast: Reports system reviewed and no additional complaints, except as docu PMFSH Past Medical History Medical History IBS (irritable bowel syndrome) Anxiety Surgical History Surgical History No history of previous surgery Social History Social History Tobacco type: e-cigarettes/vaping Alcohol intake: never Substance use: never Living arrangements: with roommate(s) Occupation/Education: student Gender identity (if verbalized by the patient): Female Comments At the time of my signature, I reviewed and agree with the nursing past medical, surgical, social, and family history. There is no relevant family history pertinent to the patient complaint. Exam Const: General: cooperative, healthy appearing, comfortable, no acute distress, well developed, alert and well nourished Nutritional Appearance: well nourished Orientation/consciousness: patient oriented x3 Limitations: no limitations HENMT: Head: normal to inspection Ears: hearing grossly normal bilaterally, external ears normal, TM's normal bilaterally, EAC's normal, mastoids normal and no periauricular adenopathy Face/Nose/Sinus: Normal external nose present, Normal nares present, Normal nasal mucous membranes and turbinates present and No nasal discharge present Mouth: Yes Normal oral and palatal mucosa present, Yes lip normal, Yes tongue normal and Yes moist mucous membranes Throat: posterior oropharynx normal, uvula midline and no uvular edema Eyes: General: appearance normal, both eyes and all related structures Alignment and Position: alignment normal Neck: Neck: normal visual inspection, full ROM, no lymphadenopathy and no meningeal signs Chest: Chest palpation & inspection: normal inspection of the chest Resp: Effort & Inspection: normal respiratory effort and able to speak in complete sentences Auscultation: clear to auscultation bilaterally, no crackles, no rales, no rhonchi and no wheezes Cardio: Rate: regular rate Skin: General skin exam: normal color and no rashes or lesions noted Neuro: General: patient oriented x3, gait normal, moves all extremities and no meningeal signs Cognition (Neuro): normal cognition Speech: normal speech Gait exam (Neuro): Normal gait present Extrem: General: normal to inspection, full ROM, capillary refill normal and normal gait Psych: Appearance: grossly normal and well kempt Mental Status: mental status grossly normal Speech and movement: Normal speech and movement present and Clear speech present Affect: normal affect Attitude: cooperative Course Course Level of Care: Express Care Visit Vital Signs Vital signs: Vital Signs Temperature 97.7 F 01/26/25 10:16 Pulse Rate 88 01/26/25 10:16 Respiratory Rate 16 01/26/25 10:16 Blood Pressure 97/71 L 01/26/25 10:16 Pulse Oximetry 100 01/26/25 10:16 Oxygen Delivery Room Air 01/26/25 10:16 Temperature 97.7 F 01/26/25 10:16 Pulse Rate 88 01/26/25 10:16 Respiratory Rate 16 01/26/25 10:16 Blood Pressure 97/71 L 01/26/25 10:16 Pulse Oximetry 100 01/26/25 10:16 Oxygen Delivery Room Air 01/26/25 10:16 Reviewed MDM - URI/Sore Throat MDM Narrative Medical decision making narrative: Patient sitting in exam room. Patient is nontoxic, vitals are stable. Patient presents with a sore throat x2 days. Strep is negative, will culture. Patient appropriate for outpatient treatment with close follow-up Discharge instructions reviewed with patient, as well as provided in writing per nursing staff. The instructions also include specific and strict return/GO TO THE ER as well as f/u information. All questions have been answered, and the patient deny any further questions with discharge and discharge plan. Some parts of this dictation were generated by voice recognition software and may contain typographical and/or grammatical inaccuracies. Differential Diagnosis Differential diagnosis: Likely upper respiratory infection, sinusitis, viral infection and pharyngitis Lab Data Labs: Lab Results 01/26/25 Range/Units 10:20 POC Grp A Strep Screen Negative (Negative) Reviewed Critical Care Time Critical Care Time Critical Care Time: No Discharge Plan Discharge Clinical Impression: Post-nasal drainage Pharyngitis Qualifiers: Pharyngitis/tonsillitis etiology: unspecified etiology Qualified Code(s): J02.9 - Acute pharyngitis, unspecified Patient Disposition: Home Condition: Stable Instructions: Antibiotic Form, Pharyngitis (ED), Postnasal Drip (DC) Additional Instructions: Your rapid strep swab was negative today at [facility]. A throat culture will be sent to the laboratory for further testing. If the test is positive, you will receive a phone call within 48 hours and an appropriate antibiotic will be initiated at that time. Your symptoms are likely due to a viral illness, which is not treated with antibiotics. Typically viral infections last 7-10 days, can linger for couple of weeks. It is very important to treat your symptoms. Drink plenty of water, Gatorade, Pedialyte, ice pops or Jell-O. -Alternate Tylenol and Motrin per package directions for fever or pain. You can alternate every 4 hours -Antihistamine medication such as Zyrtec/Claritin/Yi during the day can help improve symptoms. -doing daily nasal irrigations can help relieve pressure your sinuses. Things like a Neti pot -Use Flonase twice a day for 5 days then daily to help reduce the inflammation and dry up your sinuses. -You can also use Mucinex. Be sure to drink plenty of water with this medication at least 8 ounces with every dose and it is important to drink 8 to 10 glasses of water per day. Water is a natural decongestant -Eat and drink things that are easy to swallow, like tea or soup, or popsicles. -Oral rinses such as: Salt water gargles and/or may use topical anesthetic (eg. Chloraseptic spray) or lozenges to relieve dryness or throat pain). -Frequent hand washing or hand harness inspector is one of the best ways to prevent spread of infection. -Using a vaporizer or humidifier at night will also help thin secretions and help with coughing up phlegm. -Follow up with primary care provider in 7-10 days if condition is not improving - For new or worsening symptoms go directly to the nearest ER Patient Language: Comoran Prescriptions: No Action drospirenone-ethinyl estradiol 3-0.02 mg tablet 1 tablet PO DAILY escitalopram oxalate 10 mg tablet 10 mg PO DAILY albuterol sulfate 90 mcg/actuation HFA aerosol inhaler 2 puff inhalation Q4-6H PRN (Reason: shortness of breath or wheezing) 30 Days Qty: 8.5 0RF benzonatate 200 mg capsule 200 mg PO TID 7 Days Qty: 21 0RF ciprofloxacin HCl 500 mg tablet 500 mg PO Q12H 3 Days Qty: 6 0RF Follow-up/Referrals: UNKNOWN,DOCTOR [Primary Care Provider] - Time of Disposition: 10:31
[2025-01-26 10:33] LABS: EDSTREPNEGPOS1 Negative (Negative)
== END 2025-01-26 10:44 | disposition home or self-care (01) ==
PROVIDERS: Emergency Provider Nurse Practitioner
DX: R09.82 Postnasal drip (principal); J02.9 Acute pharyngitis, unspecified; F17.290 Nicotine dependence, other tobacco product, uncomplicated
CPT/HCPCS: 87081; 87880; 99213; G0463

== ENCOUNTER 2025-06-16 13:24 | Emergency (ER) | payer BC, SELFPAY ==
[2025-06-16 13:37] VITALS: BP 125/84; PULSE 93; RESP 20; TEMP 36.4; O2SAT 98
[2025-06-16 13:56] LABS: EDCOVIDSCREEN Negative (Negative); EDINFLUASCREEN Negative (Negative); EDINFLUBSCREEN Negative (Negative)
--- NOTE | 2025-06-16 14:01 | ED.GENADULT ---
HPI - General Adult General Chief complaint: Upper Respiratory Infection Stated complaint: Flu Like Source: patient Mode of arrival: ambulatory Limitations: no limitations History of Present Illness HPI narrative: Pt presents for evaluation of sick symptoms for the past two days. She initially had a sore throat, but that has improved. She now reports fatigue, shortness of breath which is worse with exertion, generalized body aches, subjective cough, fever and chills. She denies any vomiting or diarrhea. No recent sick contacts to her knowledge. She does not smoke. She is not taking any medication to assist with her symptoms. Related Data Home Medications ?Medication ?Instructions ?Recorded ?Confirmed ?Last Taken ?Type drospirenone 3 mg-ethinyl 1 tablet PO DAILY 03/06/24 06/16/25 Unknown History estradiol 0.02 mg tablet escitalopram oxalate 10 mg tablet 10 mg PO DAILY 05/28/24 06/16/25 Unknown History Allergies Allergy/AdvReac Type Severity Reaction Status Date / Time No Known Allergies Allergy Verified 06/16/25 13:26 Review of Systems Review of Systems: CONSTITUTIONAL: Reports fatigue, subjective fever and chills. EYES: Denies visual changes, redness, or discharge. ENT:Reports sore throat. Denies rhinorrhea, congestion, or otalgia. CARDIOVASCULAR: Denies chest pain, palpitations, or edema. RESPIRATORY:Reports SOB and cough GASTROINTESTINAL: Denies abdominal pain, nausea, vomiting, or diarrhea. GENITOURINARY: Denies dysuria or hematuria. SKIN: Denies rash or itching. MUSCULOSKELETAL: Reports generalized body aches NEUROLOGIC: Denies headache, numbness, dizziness, or weakness. PSYCHIATRIC: Denies anxiety or depression. [facility] Past Medical History Medical History IBS (irritable bowel syndrome) Anxiety Surgical History Surgical History No history of previous surgery Family History Family History (Updated 06/16/25 @ 14:19 by Florian Henry APRN, BUTCH) Mother Family history non-contributory Social History Social History Tobacco type: e-cigarettes/vaping Alcohol intake: never Substance use: never Living arrangements: with roommate(s) Occupation/Education: student Gender identity (if verbalized by the patient): Female Exam Narrative: GENERAL: Well-appearing, well-nourished, and in no acute distress. HEAD: Normocephalic, atraumatic. EYES: PERRLA and EOMI. ENT: Nares clear, no rhinorrhea or epistaxis. Mucous membranes moist. Oropharynx without tonsillar hypertrophy exudate or other lesions. Bilateral TMs pearly murguia nonbulging NECK: Supple. No adenopathy or masses. No carotid bruits or JVD CHEST: Clear to auscultation. No respiratory distress. No wheezes rales or rhonchi HEART: Regular rate and rhythm. No murmur heard. Normal peripheral pulses. ABDOMEN: Soft, nontender, nondistended, normal active bowel sounds. EXTREMITIES: Normal range of motion. No edema. SKIN: Warm, dry, no rash. NEURO: No focal deficits. Alert and oriented x3. PSYCH: Normal mood and affect. Course Course Emergency Course: this is a 24-year-old female who presented for evaluation of sick symptoms. COVID and influenza were negative. Exam consistent with acute viral syndrome. She declined any medications at the time of discharge. She requested a work note. Increase fluid intake. OTC agents for symptom management. Follow up with primary provider. Go to the ER for worsening symptoms. Pt in agreement with plan of care. Level of Care: Express Care Visit Vital Signs Vital signs: Vital Signs Temperature 36.4 C L 06/16/25 13:37 Pulse Rate 93 06/16/25 13:37 Respiratory Rate 20 06/16/25 13:37 Blood Pressure 125/84 06/16/25 13:37 Pulse Oximetry 98 06/16/25 13:37 Oxygen Delivery Room Air 06/16/25 13:37 Temperature 36.4 C L 06/16/25 13:37 Pulse Rate 93 06/16/25 13:37 Respiratory Rate 20 06/16/25 13:37 Blood Pressure 125/84 06/16/25 13:37 Pulse Oximetry 98 06/16/25 13:37 Oxygen Delivery Room Air 06/16/25 13:37 Medical Decision Making Vital Signs Vital Signs: Vital Signs Temperature 36.4 C L 06/16/25 13:37 Pulse Rate 93 06/16/25 13:37 Respiratory Rate 20 06/16/25 13:37 Blood Pressure 125/84 06/16/25 13:37 Pulse Oximetry 98 06/16/25 13:37 Oxygen Delivery Room Air 06/16/25 13:37 Temperature 36.4 C L 06/16/25 13:37 Pulse Rate 93 06/16/25 13:37 Respiratory Rate 20 06/16/25 13:37 Blood Pressure 125/84 06/16/25 13:37 Pulse Oximetry 98 06/16/25 13:37 Oxygen Delivery Room Air 06/16/25 13:37 Lab Data Labs: Lab Results 06/16/25 Range/Units 13:52 POC Influenza A Ag Negative (Negative) POC Influenza B Ag Negative (Negative) POC SARS CoV-2 Ag Negative (Negative) Discharge Plan Discharge Clinical Impression: Acute viral syndrome Patient Disposition: Home Condition: Stable Instructions: Antibiotic Form, Viral Syndrome (ED) Patient Language: Italian Prescriptions: No Action drospirenone-ethinyl estradiol 3-0.02 mg tablet 1 tablet PO DAILY escitalopram oxalate 10 mg tablet 10 mg PO DAILY Follow-up/Referrals: Carlo Quiroga MD [Physician, Family Practice] Stand Alone Forms: Work/School Release IP Time of Disposition: 13:59
--- OUTSIDE RECORDS SUMMARY | 2025-06-16 14:58 | XMS_ITS | Clinical Summary ---
Author Organization [facility] Address [address] [place] [address] Phone Care Team Providers Care Patient Account Specialist Name Role Phone Provider, None Primary Care Provider Unavailabl e Allergies No known active allergies Medications No known medications Social History Tobacco Use Types Packs/Day Years Used Date Smoking Tobacco: Never Smokeless Tobacco: Current Tobacco Cessation:Ready to Q uit: Not Asked; Counseling Given: Not Answered Comments No Sex and Gender Information Value Date Recorded Sex Assigned at Not on file Legal Sex Female 8:37 PM CDT Gender Identity Not on file Sexual Orientation Not on file Last Filed Vital Signs Vital Sign Reading Time Taken Comments Blood Pressure 93/81 12/13/2023 11:30 PM CDT Pulse 88 12/13/2023 11:30 PM CDT Temperature 37.1 C (98.7 F) 12/13/2023 8:47 PM CDT Respiratory Rate 21 12/13/2023 11:30 PM CDT Oxygen Saturation 98% 12/13/2023 11:30 PM CDT Inhaled Oxygen Concentration - - Weight 51.3 kg (113 lb) 12/13/2023 8:47 PM CDT Height 170.2 cm (5' 7) 12/13/2023 8:47 PM CDT Body Mass Index 17.7 12/13/2023 8:47 PM CDT Plan of Treatment Health Maintenance Due Date Last Done Comments Hepatitis C Virus (HCV) Screening 2002 Hepatitis B Immunization (3 of 3 - 3-dose series) 09/11/2003 07/17/2003, 2002 Human Papillomavirus (HPV) Immunization (1 - 3-dose series) 2017 Meningococcal B Immunization (1 of 2 - Standard) 2018 Pap Smear 11/28/2023 Influenza Immunization (#1) 2025 05/23/2021 SARS-COV-2 Immunization ( season) 2025 03/24/2021, 03/03/2021 Respiratory Syncytial Virus (RSV) Immunization (Adult) (1 - 1-dose 75+ series) 2077 Pneumococcal Immunization Combined Aged Out 07/17/2003, 05/04/2003, 02/04/2003 No longer eligible based on patient's age to complete this topic TdaP Immunization Completed 04/16/2014 Meningococcal Immunization (ACWY) Aged Out No longer eligible b ased on patient's age to complete this topic Rotavirus Immunization Aged Out No lo nger eligible based on patient's age to complete this topic Care Teams Patient Account Specialist Relationship Specialty Start Date End Date Provider, None [place] PCP - General 12/13/23
--- OUTSIDE RECORDS SUMMARY | 2025-06-16 14:58 | XMS_ITS | Clinical Summary ---
Author Organization [facility] [place] [facility] Address [address] [place] [address] Care Team Providers Care Asbestos Shingle Roofer Name Role Phone Bernard Pritchard MD Unavailable [phone] Nayla Suero NP Primary Care Provider [phone] Allergies No known active allergies Medications ondansetron ODT (ZOFRAN-ODT) 4 mg disintegrating tablet Dissolve 1 tablet oral every 4 hours as needed for nausea or vomiting. 15 tablet 09/11/19 24 Active Additional Information Patient not taking.Reported on 02/17/2025 drospirenone-ethin yl estradioL (LILIAN,WANDY) 3-0.02 mg per tablet Take 1 tablet by mouth daily 10/27/19 25 Active escitalopram (LEXAPRO) 10 mg tabletIndications: AVE (generalized anxiety disorder) Take 1 tablet (10 mg total) by mouth daily 90 tablet 3 11/04/19 25 Active dicyclomine (BENTYL) 10 mg capsule Take 1 capsule (10 mg total) by mouth 4 (four) times a day before meals and nightly 120 capsule 1 02/18/20 25 Active Active Problems Problem Noted Date Diagnosed Date Chronic diarrhea 02/17/2025 BMI less than 19,adult 11/03/2024 Abdominal pain 11/03/2024 A[address] (generalized anxiety disorder) 11/03/2024 Annual physical exam 11/03/2024 Assessment & Plan (11/03/2024 9:05 AM CDT): Routine health maintenance objectives discussed and orders placed for any outstanding screening studies. Physical exam performed as above. Routine annual labs obtained and will be reviewed with patient when results available. Encouraged regular physical activity--moderate activity for a total of 150 minutes per week over 3-5 days. Encouraged healthy diet with regular fresh fruits and vegetables limited in processed carbohydrates. Alcohol use Nicotine use Depression screening Encounters Date Type Department Care Team Description 04/08/2025 Telephone [facility] Gastroenterology at [address] [place] [id number] Brigitte Meade MA 03/26/2025 Telephone [facility] Gastroenterology at [address] [place] [address] Han Ford MA 03/20/2025 Results Follow-Up [facility] Gastroenterology at [address] [place] [address] Galo Bhardwaj MD Surgical pathology from Last 3 Months Immunizations Immunization Administration Dates Next Due DTaP 04/28/2004,05/04/2003,02/04/2003 DTaP / Hep B / IPV 07/17/2003 DTaP, Unspecified 05/19/2008 Hep B, Adolescent or Pediatric 2002 HiB 04/28/2004, 3,05/04/2003,02/04 IPV 05/04/2003,02/04/2003 Influenza, Quadrivalent, Renetta l Culture-based MDCK, Preservative Free, Antibiotic Free, Intramuscular 05/23/2021 MMR 05/19/2008,12/09/2003 Meningococcal B, unspecified 04/16/2014 Pneumococcal Conjugate 7-Valent 07/17/2003,05/04,02/04/2003 Polio, Unspecified 05/19/2008 Tdap 04/16/2014 Varicella 05/19/2008,12/09/2003 Surgical History Surgery Date Site/Laterality Comments COLONOSCOPY 03/13/2025 1st Medical History Medical History Date Comments Anxiety Family History Medical History Relation Name Comments No Known Problems Father No Known Problems Mother Relation Name Status Comments Father Alive Mother Alive Social History Tobacco Use Types Packs/Day Years Used Date Smoking Tobacco: Every Day Vaping Passive Smoke Exposure: Current Smokeless Tobacco: Never Tobacco Cessation:Ready to Q uit: Not Asked; Counseling Given: Not Answered AUDIT-C Answer Date Recorded Q1: How often do you have a drink containing alc ohol? 2-4 times a month 03/13/2025 Q2: How many drinks containi ng alcohol do you have on a typical day when you are drinking? 1 or 2 03/13/2025 Q3: How often do you have si x or more drinks on one occasion? Never 03/13/2025 PHQ-2 Answer Date Recorded PHQ-2 Total Score (If total score is 3 or more points, staff should administer the PHQ-9) 0 11/03/2024 Personal Safety Answer Date Recorded Have you ever been in or are you currently in a harmful physical or emotional relationship or is someone making you feel afraid or unsafe? Denies 03/13/2025 Comments Unknown Sex and Gender Information Value Date Recorded Sex Assigned at Not on file Legal Sex Female 9:08 AM DIRECTOR OF MIDWIFERY/STAFF MIDWIFE Gender Identity Not on file Sexual Orientation Not on file Last Filed Vital Signs Vital Sign Reading Time Taken Comments Blood Pressure 99/65 03/13/2025 12:30 PM CDT Pulse 68 03/13/2025 12:30 PM CDT Temperature 36.4 C (97.5 F) 03/13/2025 10:30 AM CDT Respiratory Rate 16 03/13/2025 12:30 PM CDT Oxygen Saturation 100% 03/13/2025 12:30 PM CDT Inhaled Oxygen Concentration - - Weight 49.9 kg (110 lb) 03/13/2025 10:30 AM CDT Height 172.7 cm (5' 8) 03/13/2025 10:30 AM CDT Body Mass Index 16.73 03/13/2025 10:30 AM CDT Plan of Treatment Health Maintenance Due Date Last Done Comments Cervical Cancer Screening 2002 Hepatitis C Screening 2002 HPV Vaccines (1 - 3-dose series) 2017 DTaP/Tdap/Td Vaccine (7 - Td or Tdap) 04/16/2024 04/16/2014, 05/19/2008, 04/28/2004, Additional history exists Covid-19 Vaccine ( season) 2025 03/24/2021, 03/03/2021 Influenza Vaccine (#1) 2025 05/23/2021 Pneumococcal vaccine <65 (1 of 1 - PPSV23, PCV20, or PCV21) 10/19/2025 07/17/2003, 05/04/2003, 02/04/2003 Postponed from 2008 (Patient declined, but will receive in the future) Meningococcal B Vaccine (1 of 2 - Standard) 11/01/2025 04/16/2014 Postponed from 2018 (Patient declined, but will receive in the future) Depression Screening 11/03/2025 11/03/2024 Regular Well Visit/Exam 18-64 11/03/2025 11/03/2024 Hepatitis B Screening Completed 07/17/2003, 003 Varicella Vaccines Completed 05/19/2008, 12/09/2003 [place] For more information, please contact: [phone] * Full Code (Latest Code Status on File) Date Activated Date Inactivated Comments 03/13/2025 10:17 AM 03/13/2025 4:32 PM * Full Code Date Activated Date Inactivated Comments 03/13/2025 10:17 AM 03/13/2025 10:17 AM Care Teams Asbestos Shingle Roofer Relationship Specialty Start Date End Date Nayla Suero NP [address] [facility] [address] [place] [address] PCP - General Internal Medicine 11/03/24 Bernard Pritchard MD Pediatrics 08/07/23
--- OUTSIDE RECORDS SUMMARY | 2025-06-16 14:59 | XMS_ITS | Data Portability ---
Author Organization [facility], [place] Address [address] [place] [address] [address] Care Team Providers Care Court Clerk Name Role Phone SATISH MERCADO Primary Care Provider [phone] Assessment Encounter Date Assessment Date Assessment LastModified by Organization Details LastModified Time 09/06/2023 09/06/2023 Annual gynecological exam performed. Patient will come back in a year unless there are new symptoms. [email or web address] Not available 09/06/2023 17:30:29 Plan of Treatment Reminders Order Date Submit Date Provider Last Modified By Organization Details Last Modified Time Details Appointments None recorded. Lab None recorded. Referral None recorded. Procedures None recorded. Surgeries None recorded. Imaging None recorded. Medication Orders fluconazole 150 mg tablet 2023 024 NIDIA [facility], [address] [place] [address], [address], [place], [address], 4 12:56:54 LILIAN (28) 3 mg-0.02 mg tablet 2023 024 [email or web address] [id number], [address], [place], [id number], 4 12:22:18 Fe 24 1 mg-20 mcg (24)/75 mg (4) tablet 2021 022 [email or web address] [id number], [address], [place], [id number], 4 17:34:24 Patient TargetsNo targets recorded. Patient InstructionsNo instructions recorded. Reason for Referral None Reported. Results Created Date Observation Date Name Description Value Unit Range Abnormal Flag Note LastModifiedBy Organization Detail LastModifiedTime 09/07/19 24 09/07/2023 CT/GC AND TRICH OMONA S VAGIN SARAH (RRNA ), URINE chlamydia trachomatis, PCR Negati ve negati ve Not Available [facility] (Lab) [address], [place], [address], 09/08/2023 14:50:26 09/07/19 24 09/07/2023 CT/GC AND TRICH OMONA S VAGIN SARAH (RRNA ), URINE neisseria gonorrhoeae, PCR Negati ve negati ve Not Available [facility] (Lab) [address], [place], [address], 09/08/2023 14:50:26 09/07/19 24 09/07/2023 CT/GC AND TRICH OMONA S VAGIN SARAH (RRNA ), URINE trichomonas vaginalis ribosomal RNA (rrna) Negati ve negati ve Not Available [facility] (Lab) [address], [place], [address], 09/08/2023 14:50:26 12/07/19 24 12/07/2023 CT/GC AND TRICH OMONA S VAGIN SARAH (RRNA ), SWAB chlamydia trachomatis, PCR Negati ve negati ve Not Available [facility] (Lab) [address], [place], [address], 12/14/2023 11:13:09 12/07/19 24 12/07/2023 CT/GC AND TRICH OMONA S VAGIN SARAH (RRNA ), SWAB neisseria gonorrhoeae, PCR Negati ve negati ve Not Available [facility] (Lab) [address], [place], [address], 12/14/2023 11:13:09 12/07/19 24 12/07/2023 CT/GC AND TRICH OMONA S VAGIN SARAH (RRNA ), SWAB trichomonas vaginalis ribosomal RNA (rrna) Negati ve negati ve Not Available [facility] (Lab) [address], [place], [address], 12/14/2023 11:13:09 Result Notes None recorded. Medical Equipment None Reported. Allergies No known drug allergies Medications Name Sig Start Date Stop Date Status Note LastModified by Organization Details LastModified Time fluconazole 150 mg tablet TAKE 1 TABLET BY MOUTH NOW. REPEAT IN 72 HOURS NEEDED active Not Available Not Available No t Available benzonatate 200 mg capsule TAKE 1 CAPSULE BY MOUTH THREE TIMES DAILY FOR 7 DAYS active Not Available Not Available No t Available phenazopyri dine 200 mg tablet 09/06 completed Not Available Not Available Not Available prednisone 20 mg tablet TAKE 2 TABLETS BY MOUTH DAILY FOR 5 DAYS active Not Available Not Available No t Available sulfamethox azole 800 mg-trimetho prim 160 mg tablet TAKE 1 TABLET BY MOUTH EVERY 12 HOURS FOR 7 DAYS 09/06 completed Not Available Not Available Not Available cyproheptad ine 4 mg tablet TAKE 1/2 TABLET BY MOUTH DAILY BEFORE DINNER active Not Available Not Available No t Available mupirocin 2 % topical ointment APPLY 1 GRAM ON THE SKIN THREE TIMES DAILY X 7 DAYS 09/06 completed Not Available Not Available Not Available albuterol sulfate HFA 90 mcg/actuati on aerosol inhaler INHALE 2 PUFFS BY MOUTH EVERY 4 TO 6 HOURS NEEDED FOR SHORTNESS OF BREATH OR WHEEZING active Not Available Not Available No t Available ondansetron 4 mg disintegrat ing tablet DISSOLVE 1 TABLET ON THE TONGUE EVERY 4 HOURS NEEDED FOR NAUSEA OR VOMITING active Not Available Not Available No t Available sertraline 50 mg tablet active Not Available Not Available Not Available escitalopra m 10 mg tablet TAKE 1 TABLET BY MOUTH EVERY DAY active Not Available Not Available No t Available escitalopra m 5 mg tablet TAKE 1/2 TABLET BY MOUTH DAILY FOR 4 DAYS, THEN INCREASE TO 1 TABLET DAILY IN THE EVENING THEREAFTE R active Not Available Not Available No t Available drospirenon e 3 mg-ethinyl estradiol 0.02 mg tablet TAKE 1 TABLET BY MOUTH EVERY DAY (NEEDS APPOINTME NT BEFORE NEXT REFILL) 2024 active Not Available Not Available Not Avai lable June Fe 24 1 mg-20 mcg (24)/75 mg (4) tablet TAKE 1 TABLET BY MOUTH DAILY. SKIPPING PLACEBO WEEK FOR CONTINUOU S CYCLING 09/06 completed Not Available Not Available Not Available Vitals Date Recorded Body height Body mass index (BMI) [Percentile] Per age and sex Body mass index (BMI) Body weight Systolic And Diastolic Provider Name and Address Organization Details Last Updated DateTime 09/06/2023 170.82 cm 4 % 17.6 kg/m2 80713.9 4 g 130/83 mm[Hg] Gracy Pimentel [facility] 4 17:33:30 Date Recorded Body height Body mass index (BMI) Body weight Systolic And Diastolic Provider Name and Address Organization Details Last Updated DateTime 12/07/2023 170.82 cm 17.7 kg/m2 08500.53 g 122/73 mm[Hg] Parvin Everett [facility] 12/07/2023 12:22:05 Date Recorded Body height Body mass index (BMI) [Percentile] Per age and sex Body weight Body mass index (BMI) Body mass index (BMI) [Percentile] Per age and sex Systolic And Diastolic Provider Name and Address Organization Details Last Updated DateTime 2 170.82 cm 13 % 89871.6 8 g 18.8 kg/m2 13 % 112/70 mm[Hg] Jessica Cabrales [facility] 2 16:17:19 Social History Question Answer Notes LastModified by Organizat ion Details LastModified Time Tobacco Smoking Status Never Smoker Regina apple [facility] 09/06/2023 17:29:19 Do You Have An Advance Directive? No Information n ot available 05/18/2022 How Many Years Have You Consumed Alcohol? 2 Information not available 05/18/2022 Are You Blind Or Do You Have Difficulty Seeing? No Information n ot available 05/18/2022 What Is Your Level Of Caffeine Consumption? Heavy Information not available 05/18/2022 How Much Tobacco Do You Chew? None Information not available 05/18/2022 In The 14 Days Before Symptom Onset, Have You Had Close Contact With A Laboratory-confirm ed COVID-19 While That Case Was Ill? No Information n ot available 05/18/2022 In The 14 Days Before Symptom Onset, Have You Had Close Contact With A Person Who Is Under Investigation For COVID-19 While That Person Was Ill? No Information not available 05/18/2022 Have You Been To An Area Known To Be High Risk For COVID-19? No Information not available 05/18/2022 Are You Deaf Or Do You Have Serious Difficulty Hearing? No Information not available 05/18/2022 What Type Of Diet Are You Following? REGULAR Information n ot available 05/18/2022 What Is The Highest Grade Or Level Of School You Have Completed Or The Highest Degree You Have Received? [id number] Information not available 05/18/2022 Are There Any Guns Present In Your Home? No Information not available 05/18/2022 Do You Use Your Seat Belt Or Car Seat Routinely? Yes Information not available 05/18/2022 Do You Have Smoke And Carbon Monoxide Detectors In Your Home? Yes Information not available 05/18/2022 How Much Tobacco Do You Smoke? No Information not available 05/18/2022 Do You Use Sunscreen Routinely? No Information not available 05/18/2022 Have You Used IV Drugs? No Information not available 05/18/2022 Do You Have Difficulty Walking Or Climbing Stairs? No [email or web address] Information not available 09/06/2023 Sex: Unknown Functional Status Question Answer Note LastModified by Organizat ion Details LastModified Time Do you use any illicit or recreational drugs? Yes marijuana Information not available 05/18/2022 What is your level of alcohol consumption? Occasional Information not available 05/18/2022 Are you able to walk independently without assistance or assistive devices? YESLIMIT Information not available 05/18/2022 Are you able to care for yourself independently? 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 No [email or web address] Information not available 09/06/2023 What is your exercise level? Occasional Information not available 05/18/2022 Mental Status Question Answer Note LastModified by Organization D etails LastModified Time Do you feel stressed (tense, restless, nervous, or anxious, or unable to sleep at night)? [id number] Information not available 05/18/2022 Family History Relationship Description Onset Age of this Age Resolved Age Notes LastModified by Organization Details LastModified Time Mother Heart disease Not available 2021 16:18:39 Paternal Grandmother Malignant neoplasm of breast Not available 2021 16:18:46 Medical History Condition Response No Past Medical History Y Gynecological History Statement/Question Response Abnormal Pap N Date of Last Mammogram Flow Heavy Date of LMP 10/27/2023 On BCP's at Conception? Y Was last menstrual period normal Y STIs/STDs N HPV Vaccine Y Duration of Flow (days) 7 Current Control Method BCPs Are cycles usually normal Y Date of Last Colonoscopy Frequency of Cycle (Q days) 28 Sexually Active? Y Menses Monthly Y Date of DEXA bone scan Age of first menstrual cycle 13 Date of Last Pap Smear Sexual Problems? N Desired Control Method BCPs LMP Definite Obstetrics History GPAL:G 0 P 0 0 0 0 Past Encounters Encounter ID Performer Location Encounter Start Date Encounter Closed Date Diagnosis/Indication Diagnosis SNOMED-CT Code Diagnosis ICD10 Code Diagnosis IMO Codes Diagnosis Note [id number] Rosalba Venegas [facility] [address] [address] 05/18/2022 15:56:45 05/18/2022 16:38:03 Contraception care management 602203419 Z30.9 Discussed all control options in great detail. Pt would like to start ocp. She is aware of the risks and benefits. She does not have any medical condition that is contraindi cated with the use of estrogen containing control. Pt will start her pills on the first sunday following the start of her period. She is aware it is not effective for control the first month. She is also aware of the importance of taking at the same time every day. Encouraged use of condoms as the pill does not protect against STD's. Will return in 3 months for med check. Consent was read and signed. Pt verbalized understand ing. Switching from Depo to OCPContinu ous use OCP preference Declined std screen-not SA for >3mos Time spent in visit is a total of 30 mins with at least 50% of visit consisting of counseling and review of plan of care. [id number] FRANTZ [facility] [address] [address] 09/06/2023 17:27:52 09/06/2023 18:16:13 Gynecologic examination 05704217 Z01.419 Take Calcium with Vitamin D 1200mg daily if not receiving in daily diet. It is strongly advised to have an annual flu shot and up can obtain at most pharmacies . If you have not had a TDap shot in the last 10 years you should obtain one as well. Discussed with patient & provided with informatio n regarding Gardisil vaccine to prevent the 4 strains for HPV that cause cervical cancer. Encourage safe sexual practices, to use condoms and limit partners if not already in a monogamous relationsh ip. Do monthly self breast exams. BRCA testing is now available for patients with strong genetic history of female cancer. If interested contact the office. Engage in daily exercise of low impact aerobic exercise 45-60 minutes 4-5 times weekly. Avoid tobacco, illicit drugs, and alcohol. This lifestyle behavior pattern will lead to less health conditions and longer life span. If BMI greater than 25 weight watchers or dietary consult advised. Pap smear is not recommende d prior to the age of 21. If you have any concerns, pelvic, or vaginal problems we can discuss testing. Patient received above instructio ns, and questions have been answered. If you have any questions please call or respond to this email. Patient was made aware of the patient portal and may obtain a paper copy of today's plan if desired.Gary p due age 23yo STD Screen urine sent Genetic Screen discussed Colon Screen na Dexa Screen na Routine Labs na Contracept ion care management 722614947 Z30.9 Discussed all control options in great detail. Pt would like to start ocp. She is aware of the risks and benefits. She does not have any medical condition that is contraindi cated with the use of estrogen containing control. Pt will start her pills on the first sunday following the start of her period. She is aware it is not effective for control the first month. She is also aware of the importance of taking at the same time every day. Encouraged use of condoms as the pill does not protect against STD's. Will return in 3 months for med check. Consent was read and signed. Pt verbalized understand ing. RTO x 3mos OCP check [id number] FRANTZ Jarquin [place] [address] [address] 12/07/2023 12:13:02 12/07/2023 12:57:00 Vaginitis 20421483 N76.0 vaginitis panel sentgc/ct/ trich testing sentrx sent for yeast - r/b/a reviewedvu lvar care guidelines discusseds afe sexual practices discussedd eclined UPT Time spent in visit is a total of 20 mins with at least 50% of visit consisting of counseling and review of plan of care. Venereal d isease screening 431317481 Z11.3 Health Concerns Section Related Observation LastModified by Organization Detai ls LastModified Time None Recorded Concern Status LastModified by Organization Details LastModified Time None Recorded Advance Directives Directive N: Payers Insurance Date Sequence Insurance Name Policy Number Policy Ac Covered Member ID Ac Member ID Guarantor Name 01/22/2024 1 [place] [id number] Jono Mantilla [id number] Bharati Mantilla Notes Date Note Type Note Provider Name and Address Organization Details Recorded Time 2 text/html Here today for BC consultHx reviewed & updated in chartOpts for OCP'sD/C Depo-has been on for almost 3yrs-told she needs to take a break for bone health. Rosalba Venegas, PAZ- [address], [place], [address], [facility] 05/18/2022 16:37:57 4 text/html Annual GYNReported by PatientHistoryFor history, patient reportsno gynecologic complaints.Genitourina ry symptomsFor menstrual cycle, patient reportsnormal menses. For urinary symptoms, patient reportsno hematuriaandno incontinence. For vulva, patient reportsno genital lesion. For vagina, patient reportsnormal vaginal discharge.Breast symptomsFor breast, patient reportsno breast pain,no breast lump, andno nipple discharge.Contraceptio nFor current contraception, patient reportscondoms.Endocri ne symptomsFor sexual complaints, patient reportsno sexual complaints,no pain during intercourse, andnormal libido. For menopausal symptoms, patient reportsno menopausal symptomsandnormal vaginal lubrication.Psychologi liya symptomsFor psychological symptoms, patient reportsno depression,no anxiety, andno pmdd.Preventative measuresFor preventive measures, patient reportsencourage self breast examination,encourage regular exercise,encourage no tobacco use, andencourage regular mammograms starting age 40. FRANTZ [facility] [address], [place], [address], [facility] 09/06/2023 18:04:41 4 text/html Vaginal/Vulvar ProblemReported by Patient 23yo [id number] for vaginal itching/dischargesympt oms started 3-4 days agoSA with male partner, no new partnersOCP for BCneg n/v/fneg pelvic painneg flu-like symptoms FRANTZ Jarquin [address], [place], [address], [facility] 12/07/2023 12:56:28 OBGyn Episode No OBEpisode recorded.
== END 2025-06-16 14:02 | disposition home or self-care (01) ==
PROVIDERS: Emergency Provider Nurse Practitioner
DX: B34.9 Viral infection, unspecified (principal); Z79.899 Other long term (current) drug therapy; Z20.822 Contact with and (suspected) exposure to COVID-19
CPT/HCPCS: 87426; 87804; 99212; G0463